=== PATIENT | female | born 1995 | race African-American/Black ===

== ENCOUNTER 2021-04-13 16:24 | Emergency (ER) | payer OTHER, MEDICAID, SELFPAY ==
[2021-04-13 16:39] VITALS: BP 146/89; PULSE 94; RESP 16; TEMP 36.2; O2SAT 99
--- NOTE | 2021-04-13 16:58 | ED.FEMALEGU ---
HPI - Female Genitourinary General Chief complaint: Urogenital-Female Stated complaint: POS UTI Time Seen by Provider: 04/13/21 16:58 Source: patient, RN notes reviewed and old records reviewed Mode of arrival: ambulatory Limitations: no limitations History of Present Illness HPI Narrative: 25 [facility] complaints of suprapubic pressure, urine frequency and pain with urination since Saturday. Patient states that in December she had a blood infection that started with a UTI that went into sepsis and was treated at [facility]. Patient reports that she has had no fevers, chills or sweats, denies any nausea or vomiting or any diarrhea, denies any vaginal discharge or any vaginal or perineal itching.Patient reports no concern for possible STD exposure. MD elicited complaint: dysuria and UTI Pertinent past history: recurrent UTIs Onset (ago): day(s) (day 3 of symptoms) Location of symptoms: suprapubic Related Data Home Medications Medication Instructions Recorded Confirmed empagliflozin [Jardiance] 10 mg PO DAILY 04/13/21 04/13/21 glimepiride 2 mg PO DAILY 04/13/21 04/13/21 lorazepam 1 mg PO PRN PRN 04/13/21 04/13/21 sertraline 50 mg PO DAILY 04/13/21 04/13/21 Allergies Allergy/AdvReac Type Severity Reaction Status Date / Time No Known Allergies Allergy Verified 04/13/21 16:39 Review of Systems Review of Systems: CONSTITUTIONAL: Denies fever, chills, or sweats. EYES: Denies visual changes, redness, or discharge. ENT: Denies rhinorrhea, congestion, sore throat, or otalgia. CARDIOVASCULAR: Denies chest pain, palpitations, or edema. RESPIRATORY: Denies cough or dyspnea. GASTROINTESTINAL:Positive for suprapubic abdominal pain,no nausea, vomiting, or diarrhea. GENITOURINARY:Positive for dysuria or hematuria. SKIN: Denies rash or itching. MUSCULOSKELETAL: Denies back pain, joint pain, or myalgia. NEUROLOGIC: Denies headache, numbness, or weakness. PSYCHIATRIC: Positive for history of anxiety or depression. All systems reviewed & are unremarkable except as noted in HPI and below PMFSH Past Medical History Medical History Anxiety and depression Diabetes type 2, controlled Hydradenitis Hypertension UTI (urinary tract infection) Surgical History Surgical History History of tonsillectomy and adenoidectomy Family History Family History Grandparent Kidney disease Cancer Hypertension Mother Kidney disease Heart disease Sibling Diabetes mellitus Social History Social History (Updated 04/15/21 @ 20:14 by Julee Latham NP) Smoking status: Never smoker Alcohol intake: never Substance use: never Living arrangements: with family Gender identity (if verbalized by the patient): Female Comments At time of signature, agree with nursing past medical, surgical, social and family history. There is no relevant family history pertinent to the presenting complaint Exam Narrative: GENERAL: Well-appearing, well-nourished, and in no acute distress. HEAD: Normocephalic, atraumatic. EYES: PERRLA and EOMI. ENT: Nares clear, no rhinorrhea or epistaxis. Mucous membranes moist. NECK: Supple.no lymphadenopathy CHEST: Clear to auscultation. No respiratory distress.SAO2 99% on room air HEART: Regular rate and rhythm. No murmur heard. Normal peripheral pulses. ABDOMEN: Soft,tender to suprapubic area, nondistended, normal active bowel sounds.No CVA tenderness on examination. EXTREMITIES: Normal range of motion. No edema. SKIN: Warm, dry, no rash. NEURO: No focal deficits. Alert and oriented x3. Course Vital Signs Vital signs: Vital Signs Temperature 36.2 C L 04/13/21 16:39 Pulse Rate 94 04/13/21 16:39 Respiratory Rate 16 04/13/21 16:39 Blood Pressure 146/89 H 04/13/21 16:39 Pulse Oximetry 9
== END 2021-04-13 17:20 | disposition home or self-care (01) ==
PROVIDERS: Emergency Provider Registered Nurse
DX: N39.0 Urinary tract infection, site not specified (principal); E11.9 Type 2 diabetes mellitus without complications; I10 Essential (primary) hypertension; F41.9 Anxiety disorder, unspecified; F32.9 Major depressive disorder, single episode, unspecified
CPT/HCPCS: 81003; 87077; 87086; 87088; 87186; 99213; G0463

== ENCOUNTER 2021-04-29 09:58 | Emergency (ER) | payer OTHER, MEDICAID, SELFPAY ==
[2021-04-29 10:12] VITALS: BP 148/74; PULSE 97; RESP 18; TEMP 36.8; O2SAT 100
[2021-04-29 10:59] LABS: Add Urine Microscopic? YES; Appearance Urine Clear (Clear); Bilirubin Urine Negative (Negative); Blood Urine Negative (Negative); Color Urine Yellow (Yellow); Glucose Urine UA 3+ mg/dL (Negative); Ketones Urine Negative (Negative); Leukocyte Esterase Ur 1+ LEU/UL (Negative); Nitrate Urine Negative (Negative); Protein Urine Negative (Negative); RBC Urine 0-2 /hpf (0-2); Specific Grav Ur 1.022 (1.001-1.035); Squamous Epithelial Cell Urine Occasional /hpf (Few); Urobilinogen Urine Negative mg/dL (<2.0)
--- NOTE | 2021-04-29 10:59 | ED.FEMALEGU ---
HPI - Female Genitourinary General Chief complaint: Urogenital-Female <Dalila New PA-C - Last Filed: 04/29/21 12:16> Stated complaint: yeast infection <Dalila New PA-C - Last Filed: 04/29/21 12:16> Time Seen by Provider: 04/29/21 10:12 <Dalila New PA-C - Last Filed: 04/29/21 12:16> Source: patient <ZAY Hewitt Last Filed: 04/29/21 12:16> Mode of arrival: ambulatory <ZAY Hewitt Last Filed: 04/29/21 12:16> Limitations: no limitations <ZAY Hewitt Last Filed: 04/29/21 12:16> History of Present Illness HPI Narrative: This is a 25-year-old female that presents to the emergency department for possible yeast infection. Reports she was recently on oral antibiotics for urinary tract infection. Reports over the last couple of days she has had itching and burning. Does also report some white discharge. She has history of diabetes mellitus. She would also like to be tested for STDs. Denies fever, vomiting, or flank pain. <Dalila New PA-C - Last Filed: 04/29/21 12:16> Related Data Home medications: Home Medications Medication Instructions Recorded Confirmed empagliflozin [Jardiance] 10 mg PO DAILY 04/13/21 04/13/21 glimepiride 2 mg PO DAILY 04/13/21 04/13/21 amlodipine 2.5 mg PO DAILY 04/29/21 losartan 25 mg PO DAILY 04/29/21 <ZAY Hewitt Last Filed: 04/29/21 12:16> Allergies/Adverse reactions: Allergies Allergy/AdvReac Type Severity Reaction Status Date / Time No Known Allergies Allergy Verified 04/29/21 10:18 <ZAY Hewitt Last Filed: 04/29/21 12:16> Review of Systems Review of Systems: CONSTITUTIONAL: Denies fever GASTROINTESTINAL: Denies abdominal pain, nausea, vomiting GENITOURINARY: Reports dysuria. Denies hematuria. SKIN: Reports itching. <Dalila New PA-C - Last Filed: 04/29/21 12:16> All systems reviewed & are unremarkable except as noted in HPI and below <Dalila New PA-C - Last Filed: 04/29/21 12:16> [facility] Past Medical History Medical History: Medical History Anxiety and depression Diabetes type 2, controlled Hydradenitis Hypertension UTI (urinary tract infection) <Dalila New PA-C - Last Filed: 04/29/21 12:16> Surgical History Surgical History: Surgical History History of tonsillectomy and adenoidectomy <ZAY Hewitt Last Filed: 04/29/21 12:16> Family History Family History: Family History Grandparent Kidney disease Cancer Hypertension Mother Kidney disease Heart disease Sibling Diabetes mellitus <ZAY Hewitt Last Filed: 04/29/21 12:16> Social History Social History: Social History (Updated 04/15/21 @ 20:14 by Julee Latham NP) Smoking status: Never smoker Alcohol intake: never Substance use: never Gender identity (if verbalized by the patient): Female <ZAY Hewitt Last Filed: 04/29/21 12:16> Exam Narrative: GENERAL: Well-appearing, obese, and in no acute distress. HEAD: Normocephalic, atraumatic. EYES: EOMI. CHEST: Airway patent HEART: Regular rate EXTREMITIES: Normal range of motion. No edema. SKIN: Warm, dry, no rash. NEURO: No focal deficits. Alert and oriented x3. PSYCH: Normal mood and affect PELVIC: Vulvovaginal redness with mild white discharge. Cervix appears normal. No CMT <ZAY Hewitt Last Filed: 04/29/21 12:16> Course Vital Signs Vital signs: Vital Signs Temperature 98.2 F 04/29/21 10:12 Pulse Rate 97 04/29/21 10:12 Respiratory Rate 18 04/29/21 10:12 Blood Pressure 148/74 H 04/29/21 10:12 Pulse Oximetry 100 04/29/21 10:12 Temperature 98.2 F 04/29/21 10:12 Pulse Rate 97 04/29/21 10:12 Respiratory Rate 18 04/29
[2021-04-29] MEDS: FLUCONAZOLE 150 MG TABLET PO (12:20)
== END 2021-04-29 12:26 | disposition home or self-care (01) ==
PROVIDERS: Physician Assistant; Emergency Provider General Practice
DX: B37.3 Candidiasis of vulva and vagina (principal); E11.9 Type 2 diabetes mellitus without complications; I10 Essential (primary) hypertension; Z79.899 Other long term (current) drug therapy; Z87.440 Personal history of urinary (tract) infections; Z79.84 Long term (current) use of oral hypoglycemic drugs
CPT/HCPCS: 81001; 81025; 87070; 87491; 87591; 87808; 99284; A9270

== ENCOUNTER 2021-08-08 18:38 | Emergency (ER) | payer OTHER, MEDICAID, SELFPAY ==
[2021-08-08 18:42] VITALS: BP 149/94; PULSE 110; RESP 12; TEMP 36.6; O2SAT 99
--- NOTE | 2021-08-08 18:45 | ED.GENADULT ---
HPI - General Adult General Chief complaint: Nausea/Vomiting/Diarrhea Stated complaint: NAUSEA/LIGHT HEADED/WEAKNESS Time Seen by Provider: 08/08/21 18:45 Source: patient, RN notes reviewed and old records reviewed Mode of arrival: ambulatory Limitations: no limitations History of Present Illness HPI narrative: 25-year-old female presents to the [facility] with complaints of generalized weakness since Thanksgiving, generalized nausea. Patient is requesting to have blood work done, explained to her that we cannot do blood work here patient states that she was unaware stood up and walked out. Patient states that she really needs blood work, had a similar feeling back in December 2020 and states I had a blood infection. Related Data Home Medications Medication Instructions Recorded Confirmed empagliflozin [Jardiance] 10 mg PO DAILY 04/13/21 04/13/21 glimepiride 2 mg PO DAILY 04/13/21 04/13/21 amlodipine 2.5 mg PO DAILY 04/29/21 losartan 25 mg PO DAILY 04/29/21 atorvastatin 08/08/21 hydroxyzine pamoate 08/08/21 lorazepam 08/08/21 sertraline mg 08/08/21 Allergies Allergy/AdvReac Type Severity Reaction Status Date / Time No Known Allergies Allergy Verified 04/29/21 10:18 Review of Systems Review of Systems: Unable to obtain, patient walked out Constitutional: Constitutional: Reports weakness PMFSH Past Medical History Medical History Anxiety and depression Diabetes type 2, controlled Hydradenitis Hypertension UTI (urinary tract infection) Surgical History Surgical History History of tonsillectomy and adenoidectomy Family History Family History Grandparent Kidney disease Cancer Hypertension Mother Kidney disease Heart disease Sibling Diabetes mellitus Social History Social History Smoking status: Never smoker Alcohol intake: never Substance use: never Gender identity (if verbalized by the patient): Female Comments At the time of my signature, I reviewed and agree with the nursing past medical, surgical, social, and family history. There is no relevant family history pertinent to the patient complaint. Exam Const: General: no acute distress Nutritional Appearance: obese morbidly obese Orientation/consciousness: patient oriented x3 Resp: Effort & Inspection: normal respiratory effort and no use of accessory muscles Psych: Appearance: well kempt Course Vital Signs Vital signs: Vital Signs Temperature 97.9 F 08/08/21 18:42 Pulse Rate 110 H 08/08/21 18:42 Respiratory Rate 12 08/08/21 18:42 Blood Pressure 149/94 H 08/08/21 18:42 Pulse Oximetry 99 08/08/21 18:42 Temperature 97.9 F 08/08/21 18:42 Pulse Rate 110 H 08/08/21 18:42 Respiratory Rate 12 08/08/21 18:42 Blood Pressure 149/94 H 08/08/21 18:42 Pulse Oximetry 99 08/08/21 18:42 Reviewed Medical Decision Making Vital Signs Vital Signs: Vital Signs Temperature 97.9 F 08/08/21 18:42 Pulse Rate 110 H 08/08/21 18:42 Respiratory Rate 12 08/08/21 18:42 Blood Pressure 149/94 H 08/08/21 18:42 Pulse Oximetry 99 08/08/21 18:42 Temperature 97.9 F 08/08/21 18:42 Pulse Rate 110 H 08/08/21 18:42 Respiratory Rate 12 08/08/21 18:42 Blood Pressure 149/94 H 08/08/21 18:42 Pulse Oximetry 99 08/08/21 18:42 Critical Care Time Critical Care Time Critical Care Time: No Discharge Plan Discharge Clinical Impression: Nausea Patient Disposition: Elopement After Seen by Prov Condition: Stable Prescriptions: No Action glimepiride 2 mg Tablet 2 mg PO DAILY RF: 0 Jardiance 10 mg Tablet 10 mg PO DAILY RF: 0 atorvastatin 10 mg tablet RF: 0 lorazepam 1 mg tablet RF: 0 sertraline 50 mg tablet RF: 0 hydroxyzine pamo
--- NOTE | 2021-08-08 18:49 | PC.NURSE ---
Patient left after seen by provider. Stated she wants blood work to see if she is septic. Was septic in December and felt just like this.
== END 2021-08-08 18:52 | disposition left against medical advice (07) ==
PROVIDERS: Emergency Provider Nurse Practitioner
DX: R11.0 Nausea (principal); E11.9 Type 2 diabetes mellitus without complications; I10 Essential (primary) hypertension
CPT/HCPCS: 99211; G0463

== ENCOUNTER 2021-10-25 09:28 | Emergency (ER) | payer OTHER, MEDICAID, SELFPAY ==
[2021-10-25 09:32] VITALS: BP 150/99; PULSE 102; RESP 18; TEMP 36.2; O2SAT 100
--- NOTE | 2021-10-25 11:53 | ED.WOUNDLAC ---
HPI - Wound/Laceration General Chief Complaint: Wound/Laceration Stated Complaint: boil to R thigh Time Seen by Provider: 10/25/21 11:06 Source: patient Mode of arrival: ambulatory Limitations: no limitations History of Present Illness HPI narrative: This is a 26 year old female that presents to the ER for abscess noted over the last 2 days. Reports history of hidradenitis suppurativa. She has noted redness and swelling of the right thigh over the last 2 days. Denies fever or drainage from the area. Related Data Home Medications Medication Instructions Recorded Confirmed empagliflozin [Jardiance] 10 mg PO DAILY 04/13/21 04/13/21 glimepiride 2 mg PO DAILY 04/13/21 04/13/21 amlodipine 2.5 mg PO DAILY 04/29/21 losartan 25 mg PO DAILY 04/29/21 atorvastatin 08/08/21 hydroxyzine pamoate 08/08/21 lorazepam 08/08/21 sertraline mg 08/08/21 Allergies Allergy/AdvReac Type Severity Reaction Status Date / Time No Known Allergies Allergy Verified 10/25/21 11:13 Review of Systems Review of Systems: CONSTITUTIONAL: Denies fever SKIN: Reports abscess All systems reviewed & are unremarkable except as noted in HPI and below PMFSH Past Medical History Medical History Anxiety and depression Diabetes type 2, controlled Hydradenitis Hypertension UTI (urinary tract infection) Surgical History Surgical History History of tonsillectomy and adenoidectomy Family History Family History Grandparent Kidney disease Cancer Hypertension Mother Kidney disease Heart disease Sibling Diabetes mellitus Social History Social History Smoking status: Never smoker Alcohol intake: never Substance use: never Gender identity (if verbalized by the patient): Female Exam Narrative: GENERAL: Well-appearing, well-nourished, and in no acute distress. HEAD: Normocephalic, atraumatic. EYES: EOMI. EXTREMITIES: Normal range of motion. No edema. Right inner thigh with 3cm area of edema with central fluctuance. Mild surrounding redness SKIN: Warm, dry, no rash. NEURO: No focal deficits. Alert and oriented x3. PSYCH: Normal mood and affect Course Vital Signs Vital signs: Vital Signs Temperature 97.1 F L 10/25/21 09:32 Pulse Rate 102 H 10/25/21 09:32 Respiratory Rate 18 10/25/21 09:32 Blood Pressure 150/99 H 10/25/21 09:32 Pulse Oximetry 100 10/25/21 09:32 Temperature 97.1 F L 10/25/21 09:32 Pulse Rate 102 H 10/25/21 09:32 Respiratory Rate 18 10/25/21 09:32 Blood Pressure 150/99 H 10/25/21 09:32 Pulse Oximetry 100 10/25/21 09:32 Procedures Abscess I/D lower extremity: Date of Incision: 10/25/21 Time of Incision: 13:00 Side (if applicable): right Local Anesthetic: lidocaine 1% and with epi Amount of anesthesia used (mL): 2 Technique: incised with #11 blade Irrigation: Yes Packing used?: iodoform I&D Results: Pus and Blood MDM - Wound/Laceration MDM Narrative Medical decision making narrative: Patient presents to the emergency department for an abscess of the right inner thigh. Mild surrounding redness of the area. Abscess successfully drained in the ED. Patient is afebrile and nontoxic-appearing. Will be started on oral antibiotics. She is to follow-up with her primary care doctor. She was given warnings to return to the ER Lab Data Attestation: I reviewed the patient's lab results. Labs: UCG Bedside Result Negative Reference Range: Negative Critical Care Time Critical Care Time Critical Care Time: No Discharge Plan Discharge Clinical Impression: Abscess Patient Disposition: Home, Self-Care Condition: Stable Instructions: Antibiotic Form
== END 2021-10-25 13:34 | disposition home or self-care (01) ==
PROVIDERS: Emergency Provider Emergency Medicine
DX: L02.415 Cutaneous abscess of right lower limb (principal); F41.9 Anxiety disorder, unspecified; F32.9 Major depressive disorder, single episode, unspecified; E11.9 Type 2 diabetes mellitus without complications; I10 Essential (primary) hypertension
CPT/HCPCS: 10061; 81025; 87070; 87147; 87181; 87186; 87205; 99283

== ENCOUNTER 2022-02-15 21:15 | Emergency (ER) | payer OTHER, MEDICAID, SELFPAY ==
[2022-02-15 22:02] VITALS: BP 153/108; PULSE 102; RESP 16; TEMP 36.1; O2SAT 98
--- NOTE | 2022-02-15 22:04 | ECG_ITS ---
Measurements Intervals [place] Rate: 100 P: 32 DE: 162 QRS: 38 QRSD: 90 T: 17 QT: 341 QTc: 440 Interpretive Statements SINUS TACHYCARDIA ABNORMAL RHYTHM ECG NO PREVIOUS ECG AVAILABLE FOR COMPARISON Electronically Signed On 02-16-2022 14:04:54 CDT by Andre Washington M.D.
[2022-02-15 22:33] LABS: Appearance Urine Clear (Clear); Bilirubin Urine Negative (Negative); Blood Urine 1+ (Negative); Color Urine Yellow (Yellow); Glucose Urine UA 3+ mg/dL (Negative); Ketones Urine Trace mg/dL (Negative); Leukocyte Esterase Ur Negative LEU/UL (Negative); Nitrate Urine Negative (Negative); Protein Urine Negative (Negative); Specific Grav Ur 1.025 (1.001-1.035); Urobilinogen Urine 0.2 mg/dL (<2.0); pH Urine 5.5 (5.0-9.0)
[2022-02-15 22:38] LABS: Mucus Urine Rare /lpf; RBC Urine 0-2 /hpf (0-2); Squamous Epithelial Cell Urine Few /hpf (Few); WBC Urine 0-3 /hpf
[2022-02-15 22:40] LABS: Add Urine Microscopic? YES
[2022-02-15 22:58] LABS: Basophils Absolute Auto 0.1 K/mm3 (0.0-0.1); Basophils Percent Auto 0.5 % (0.2-1.2); Eosinophils Absolute Auto 0.3 K/mm3 (0-0.3); Eosinophils Percent Auto 2.1 % (0-4.4); Hematocrit 44.1 % (37.0-47.0); Hemoglobin 14.4 g/dL (12.0-15.0); Immature Granulocyte Absolute 0.08 K/mm3 (0.00-0.031); Immature Granulocyte Percent A 0.7 % (0-0.5); Lymphocytes Absolute Auto 3.33 K/mm3 (0.9-3.2); Lymphocytes Percent Auto 28.4 % (18.3-44.2); Mean Corpuscular HGB Conc 32.7 g/dl (32-36); Mean Corpuscular Hemoglobin 28.5 pg (26-34); Mean Corpuscular Volume 87.3 fl (80-100); Mean Platelet Volume 10.4 fl (7.4-10.4); Monocytes Absolute Auto 0.9 K/mm3 (0.1-0.6); Monocytes Percent Auto 7.4 % (2.6-8.5); Neutrophils Absolute Auto 7.2 K/mm3 (1.3-6.7); Neutrophils Percent Auto 60.9 % (45.5-73.1); Platelet Count Result 303 k/mm3 (150-375); Red Blood Count 5.05 M/mm3 (4.2-5.4); Red Cell Distribution Width 12.8 % (11.5-14.5); White Blood Count 11.7 K/mm3 (4.5-10.0)
[2022-02-15 23:11] LABS: Alanine Aminotransferase 56 U/L (6-35); Albumin Level 4.1 g/dL (3.5-5.1); Alkaline Phosphatase 176 U/L (38-126); Anion Gap 8 mmol/L (8-16); Aspartate Amino Transferase 63 U/L (14-36); Bilirubin,Total 0.3 mg/dL (0.2-1.3); Blood Urea Nitrogen 11 mg/dL (7-17); Calcium 9.4 mg/dL (8.4-10.2); Carbon Dioxide 28 mmol/L (22-30); Chloride 100 mmol/L (98-107); Estimated CRCL calculation 155 ml/min; Estimated Glomerular Filt Rate > 60; Glucose 337 mg/dL (65-110); Lipase 48 U/L (23-300); Potassium 4.1 mmol/L (3.4-5.0); Sodium 136 mmol/L (137-145)
--- NOTE | 2022-02-15 23:35 | ED.ABDPAIN ---
HPI - Abdominal Pain General Chief Complaint: Abdominal Pain <ZAY Hewitt Last Filed: 02/16/22 00:53> Stated Complaint: uti that is getting worse <ZAY Hewitt Last Filed: 02/16/22 00:53> Time Seen by Provider: 02/15/22 23:22 <ZAY Hewitt Last Filed: 02/16/22 00:53> Source: patient <ZAY Hewitt Last Filed: 02/16/22 00:53> Mode of arrival: ambulatory <ZAY Hewitt Last Filed: 02/16/22 00:53> Limitations: no limitations <ZAY Hewitt Last Filed: 02/16/22 00:53> History of Present Illness HPI narrative: This is a 26-year-old female that presents to the emergency department for vulval vaginal discomfort. Reports she was recently diagnosed with a UTI and is finishing a course of Macrobid. Her hematuria has resolved. She has had some ongoing dysuria. Reports some nausea and indigestion. Earlier she was feeling anxious and started to develop some chest pain. She was concerned that her antibiotics were not working which prompted her to be seen. <Dalila New PA-C - Last Filed: 02/16/22 00:53> Related Data Home Medications: Home Medications Medication Instructions Recorded Confirmed empagliflozin 10 mg tablet 10 mg PO DAILY 04/13/21 04/13/21 (Jardiance) glimepiride 2 mg tablet 2 mg PO DAILY 04/13/21 04/13/21 amlodipine 2.5 mg tablet 2.5 mg PO DAILY 04/29/21 losartan 25 mg tablet 25 mg PO DAILY 04/29/21 atorvastatin 10 mg tablet 08/08/21 hydroxyzine pamoate 25 mg capsule 08/08/21 lorazepam 1 mg tablet 08/08/21 sertraline 50 mg tablet mg 08/08/21 <ZAY Hewitt Last Filed: 02/16/22 00:53> Allergies/Adverse Reactions: Allergies Allergy/AdvReac Type Severity Reaction Status Date / Time No Known Allergies Allergy Verified 02/15/22 23:57 <Dalila New PA-C - Last Filed: 02/16/22 00:53> Review of Systems Review of Systems: CONSTITUTIONAL: Denies fever GASTROINTESTINAL: Reports nausea. Denies abdominal pain, vomiting GENITOURINARY: Reports dysuria. Denies hematuria. <Dalila New PA-C - Last Filed: 02/16/22 00:53> All systems reviewed & are unremarkable except as noted in HPI and below <Dalila New PA-C - Last Filed: 02/16/22 00:53> PMFSH Past Medical History Medical History: Medical History Anxiety and depression Diabetes type 2, controlled Hydradenitis Hypertension UTI (urinary tract infection) <Dalila New PA-C - Last Filed: 02/16/22 00:53> Surgical History Surgical History: Surgical History History of tonsillectomy and adenoidectomy <Dalila New PA-C - Last Filed: 02/16/22 00:53> Family History Family History: Family History Grandparent Kidney disease Cancer Hypertension Mother Kidney disease Heart disease Sibling Diabetes mellitus <ZAY Hewitt Last Filed: 02/16/22 00:53> Social History Social History: Social History Smoking status: Never smoker Alcohol intake: never Substance use: never Gender identity (if verbalized by the patient): Female <ZAY Hewitt Last Filed: 02/16/22 00:53> Exam Narrative: GENERAL: Well-appearing, well-nourished, and in no acute distress. HEAD: Normocephalic, atraumatic. EYES: EOMI. CHEST: Clear to auscultation. No respiratory distress. No wheezes rales or rhonchi HEART: Regular rate and rhythm. No murmur heard. Normal peripheral pulses. ABDOMEN: Soft, nontender, nondistended, normal active bowel sounds. No CVA tenderness EXTREMITIES: Normal range of motion. No edema. SKIN: Warm, dry, no rash. NEURO: No focal deficits. Alert and oriented x3. PSYCH: Normal mood and affect FEMALE GENITAL: Mild redness and white discharge noted in the vulvova
[2022-02-15] MEDS: ONDANSETRON INJ 4 MG/2 ML VIAL IV PUSH (23:58)
[2022-02-15] MEDS: FLUCONAZOLE 150 MG TABLET PO (23:58)
[2022-02-15] MEDS: FAMOTIDINE 20 MG/2 ML VIAL IV PUSH (23:58)
[2022-02-16 00:05] VITALS: PULSE 98; RESP 16; O2SAT 97
[2022-02-16 00:39] LABS: Troponin I < 0.012 ng/mL (0.000-0.034)
[2022-02-16 01:07] VITALS: BP 153/84; PULSE 93; RESP 16; O2SAT 99
== END 2022-02-16 01:08 | disposition home or self-care (01) ==
PROVIDERS: Physician Assistant; Emergency Provider Emergency Medicine
DX: B37.3 Candidiasis of vulva and vagina (principal); E11.9 Type 2 diabetes mellitus without complications; I10 Essential (primary) hypertension; F41.9 Anxiety disorder, unspecified; F32.9 Major depressive disorder, single episode, unspecified
CPT/HCPCS: 36415; 80053; 81001; 81025; 83690; 84484; 85025; 93005; 96365; 96375; 99284; A9270; J0131; J2405

== ENCOUNTER 2022-05-07 14:42 | Emergency (ER) | payer OTHER, MEDICAID, SELFPAY ==
[2022-05-07 15:00] VITALS: BP 148/92; PULSE 110; RESP 20; TEMP 36.6; O2SAT 99
--- NOTE | 2022-05-07 17:26 | ED.WOUNDLAC ---
HPI - Wound/Laceration General Chief Complaint: Wound/Laceration Stated Complaint: abscess above pubic bone Time Seen by Provider: 05/07/22 17:07 Source: patient Mode of arrival: ambulatory Limitations: no limitations History of Present Illness HPI narrative: This is a 26-year-old female that presents to the emergency department for lower abdominal abscess present since yesterday. Reports history of frequent abscesses. Today she was also feeling generally unwell. She does report history of diabetes mellitus. She has not been checking her blood sugar. She has been taking her metformin as prescribed. Denies fevers or vomiting. Related Data Home Medications Medication Instructions Recorded Confirmed empagliflozin 10 mg tablet 10 mg PO DAILY 04/13/21 04/13/21 (Jardiance) glimepiride 2 mg tablet 2 mg PO DAILY 04/13/21 04/13/21 amlodipine 2.5 mg tablet 2.5 mg PO DAILY 04/29/21 losartan 25 mg tablet 25 mg PO DAILY 04/29/21 atorvastatin 10 mg tablet 08/08/21 hydroxyzine pamoate 25 mg capsule 08/08/21 lorazepam 1 mg tablet 08/08/21 sertraline 50 mg tablet mg 08/08/21 Allergies Allergy/AdvReac Type Severity Reaction Status Date / Time No Known Allergies Allergy Verified 05/07/22 18:16 Review of Systems Review of Systems: CONSTITUTIONAL: Denies fever GASTROINTESTINAL: Denies abdominal pain, nausea, vomiting All systems reviewed & are unremarkable except as noted in HPI and below PMFSH Past Medical History Medical History Anxiety and depression Diabetes type 2, controlled Hydradenitis Hypertension UTI (urinary tract infection) Surgical History Surgical History History of tonsillectomy and adenoidectomy Family History Family History Grandparent Kidney disease Cancer Hypertension Mother Kidney disease Heart disease Sibling Diabetes mellitus Social History Social History Smoking status: Never smoker Alcohol intake: never Substance use: never Gender identity (if verbalized by the patient): Female Exam Narrative: GENERAL: Well-appearing, well-nourished, and in no acute distress. HEAD: Normocephalic, atraumatic. EYES: EOMI. CHEST: No respiratory distress. HEART: Regular rate ABDOMEN: Soft, nontender, nondistended, normal active bowel sounds. Small (3cm) area of edema with central fluctuance to the left lower abdomen EXTREMITIES: Normal range of motion. No edema. SKIN: Warm, dry, no rash. NEURO: No focal deficits. Alert and oriented x3. PSYCH: Normal mood and affect Course Vital Signs Vital signs: Vital Signs Temperature 97.8 F 05/07/22 15:00 Pulse Rate 110 H 05/07/22 15:00 Respiratory Rate 20 05/07/22 15:00 Blood Pressure 148/92 H 05/07/22 15:00 Pulse Oximetry 99 05/07/22 15:00 Oxygen Delivery Room Air 05/07/22 15:00 Temperature 97.8 F 05/07/22 15:00 Pulse Rate 110 H 05/07/22 15:00 Respiratory Rate 20 05/07/22 15:00 Blood Pressure 148/92 H 05/07/22 15:00 Pulse Oximetry 99 05/07/22 15:00 Oxygen Delivery Room Air 05/07/22 15:00 Procedures Abscess I/D abdomen: Date of Incision: 05/07/22 Time of Incision: 18:58 Local Anesthetic: lidocaine 1% and with epi Amount of anesthesia used (mL): 3 Technique: incised with #11 blade Irrigation: Yes Packing used?: iodoform I&D Results: Pus and Blood MDM - Wound/Laceration MDM Narrative Medical decision making narrative: Patient presents to the ER for an abscess present on the abdomen. Patient with history of frequent abscesses. She is afebrile and nontoxic-appearing. CBC with mild leukocytosis. Blood glucose is elevated in the 200s. No anion gap. Patient's bicarb is normal. Reports she has been taking her metformin as scheduled. [place]
[2022-05-07 18:16] LABS: Basophils Absolute Auto 0.1 K/mm3 (0.0-0.1); Basophils Percent Auto 0.4 % (0.2-1.2); Eosinophils Absolute Auto 0.2 K/mm3 (0-0.3); Eosinophils Percent Auto 1.5 % (0-4.4); Hematocrit 44.2 % (37.0-47.0); Hemoglobin 14.6 g/dL (12.0-15.0); Immature Granulocyte Absolute 0.05 K/mm3 (0.00-0.031); Immature Granulocyte Percent A 0.4 % (0-0.5); Lymphocytes Absolute Auto 3.13 K/mm3 (0.9-3.2); Lymphocytes Percent Auto 27.1 % (18.3-44.2); Mean Corpuscular Volume 87.7 fl (80-100); Monocytes Absolute Auto 0.9 K/mm3 (0.1-0.6); Monocytes Percent Auto 7.5 % (2.6-8.5); Neutrophils Absolute Auto 7.3 K/mm3 (1.3-6.7); Neutrophils Percent Auto 63.1 % (45.5-73.1); Platelet Count Result 331 k/mm3 (150-375); Red Blood Count 5.04 M/mm3 (4.2-5.4); Red Cell Distribution Width 12.7 % (11.5-14.5); White Blood Count 11.5 K/mm3 (4.5-10.0)
[2022-05-07 18:24] LABS: Alanine Aminotransferase 42 U/L (6-35); Albumin Level 4.5 g/dL (3.5-5.1); Alkaline Phosphatase 164 U/L (38-126); Anion Gap 5 mmol/L (8-16); Aspartate Amino Transferase 47 U/L (14-36); Bilirubin,Total 0.4 mg/dL (0.2-1.3); Blood Urea Nitrogen 7 mg/dL (7-17); Calcium 9.2 mg/dL (8.4-10.2); Carbon Dioxide 27 mmol/L (22-30); Chloride 99 mmol/L (98-107); Estimated CRCL calculation 161 ml/min; Estimated Glomerular Filt Rate > 60; Glucose 258 mg/dL (65-110); Potassium 3.8 mmol/L (3.4-5.0); Sodium 131 mmol/L (137-145)
== END 2022-05-07 19:11 | disposition home or self-care (01) ==
PROVIDERS: Physician Assistant; Emergency Provider Emergency Medicine; PCP Family Medicine
DX: L02.211 Cutaneous abscess of abdominal wall (principal); F41.9 Anxiety disorder, unspecified; F32.9 Major depressive disorder, single episode, unspecified; I10 Essential (primary) hypertension; Z87.440 Personal history of urinary (tract) infections
CPT/HCPCS: 10061; 36415; 80053; 85025; 87070; 87077; 87186; 87205; 99283

== ENCOUNTER 2022-05-11 10:37 | Outpatient (CLI) | payer OTHER, MEDICAID, SELFPAY ==
[2022-05-11 19:15] LABS: Cholesterol 187 mg/dL (0-200); HDL Direct 28 mg/dL; Triglycerides 177 mg/dL (<150)
[2022-05-11 19:26] LABS: Hemoglobin A1C 11.6 % (<5.7)
[2022-05-11 19:40] LABS: LDL Cholesterol Direct 128 mg/dL
== END 2022-05-11 10:38 | disposition home or self-care (01) ==
LOC: ANHGOSHLAB 10:39
PROVIDERS: PCP Family Medicine; Visit Provider Family Medicine
DX: E11.9 Type 2 diabetes mellitus without complications (principal); R74.8 Abnormal levels of other serum enzymes; Z79.899 Other long term (current) drug therapy
CPT/HCPCS: 36415; 80061; 83036

== ENCOUNTER 2022-05-31 07:54 | Outpatient (CLI) | payer OTHER, MEDICAID, SELFPAY ==
--- NOTE | ~2022-05-31 | US_ITS ---
US right upper quadrant DATE: 05/31/2022 08:43 INDICATION: Abnormal liver enzymes TECHNIQUE: Real-time imaging of liver, pancreas, gallbladder, COMPARISON: 10/07/2017 CT abdomen pelvis FINDINGS: No hepatic or pancreatic space occupying mass lesion is detected. Normal hepatopedal renuka l venous flow direction. No gallstones or gallbladder wall thickening or abnormal pericholecystic fl uid collection. IMPRESSION: No significant abnormality Reviewed, dictated and finalized at [facility]. Reviewed, dictated and finalized at [facility]. IMPRESSION: No significant abnormality
== END 2022-05-31 07:55 | disposition home or self-care (01) ==
PROVIDERS: PCP Family Medicine; Visit Provider Family Medicine
DX: R74.8 Abnormal levels of other serum enzymes (principal)
CPT/HCPCS: 76705

== ENCOUNTER 2022-10-03 08:15 | Outpatient (CLI) | payer OTHER, MEDICAID, SELFPAY ==
[2022-10-03 09:37] LABS: Kit Draw Collected
== END 2022-10-03 08:16 | disposition home or self-care (01) ==
LOC: ANHGOSHLAB 08:16
PROVIDERS: PCP Family Medicine; Visit Provider Nurse Practitioner
DX: Z32.01 Encounter for pregnancy test, result positive (principal)
CPT/HCPCS: 36415

== ENCOUNTER 2022-10-05 08:28 | Outpatient (CLI) | payer OTHER, MEDICAID, SELFPAY | END 2022-10-05 08:29 | disposition home or self-care (01) | LOC: ANHGOSHLAB 08:30 | PROVIDERS: PCP Family Medicine; Visit Provider Nurse Practitioner | DX: Z32.01 Encounter for pregnancy test, result positive (principal) | CPT/HCPCS: 36415; 84702 ==

== ENCOUNTER 2022-10-14 17:57 | Emergency (ER) | payer OTHER, MEDICAID, SELFPAY ==
[2022-10-14] VITALS (7 sets, daily range): BP systolic 146–183; BP diastolic 82–111; PULSE 98–113; RESP 16–23; TEMP 36.9; O2SAT 97–100
--- NOTE | ~2022-10-14 | US_ITS ---
Pelvic ultrasound. Clinical History: First trimester , vaginal bleeding, pelvic pain Technique: Realtime transabdominal and transvaginal scanning of the pelvis was performed. Color flow Doppler and Doppler spectral analysis were performed. Findings: The uterus is anteverted. The endometrial stripe has a thickness of 17 mm. No intrauterine gestational sac is identified. Neither ovary seen. No adnexal mass seen. There is no evidence of free fluid in the cul de sac. Impression: Positive test without intrauterine gestation. Somewhat heterogeneous, prominent endometrial stripe suggests spontaneous . Early normal or nonvisualized ectopic anni ot be completely excluded based on this examination in isolation. Correlate clinically. Continued fol low up with serial beta hCG, and repeat ultrasound as warranted, is advised. Reviewed, dictated and finalized at location [facility]. [facility] CUTTER Impression: Positive test without intrauterine gestation. Somewhat heterogeneous, prominent endometrial stripe suggests spontaneous . Early normal pregn pelon or nonvisualized ectopic cannot be completely excluded based on this examination in isolation. Correlate clinically. Continued follow up with s erial beta hCG, and repeat ultrasound as warranted, is advised.
--- NOTE | 2022-10-14 19:29 | ED.PREGNANCY ---
HPI - General Chief complaint: Vaginal Bleeding Stated complaint: 7 weeks , alot of bleeidng Time Seen by Provider: 10/14/22 19:28 Source: patient and old records reviewed Mode of arrival: ambulatory Limitations: no limitations History of Present Illness HPI Narrative: Patient is a 27 y/o female who presents to the ED with c/o vaginal bleeding. Patient is and currently approximately 7 weeks gestation. She developed some vaginal spotting yesterday with wiping. Today, she noticed persistent spotting. The bleeding seemed to become heavier and with clots, which prompted her presentation. She also reports having some lower abdominal cramping. Denies significant nausea, vomiting, urinary symptoms, fevers. Patient is scheduled to see Dr. Gonzalez tomorrow for her first appointment. She has not had an ultrasound yet. Patient has a history of diabetes and is currently on Januvia and Glimepiride. She also has a history of hypertension but is not currently on any medications for this. She states her pressures have been around 140s systolic recently. They plan to discuss safe medications tomorrow. Related Data Home Medications Medication Instructions Recorded Confirmed sertraline 50 mg tablet 75 mg PO DAILY 05/11/22 10/03/22 Allergies Allergy/AdvReac Type Severity Reaction Status Date / Time No Known Allergies Allergy Verified 10/03/22 07:40 Review of Systems Review of Systems: CONSTITUTIONAL: Denies fever, chills, or sweats. EYES: Denies visual changes. CARDIOVASCULAR: Denies chest pain. RESPIRATORY: Denies cough or dyspnea. GASTROINTESTINAL: See HPI. GENITOURINARY: See HPI. NEUROLOGIC: Denies headache, numbness, or weakness. All systems reviewed & are unremarkable except as noted in HPI and below PMFSH Past Medical History Medical History Anxiety and depression Diabetes type 2, controlled Hydradenitis Hypertension UTI (urinary tract infection) Surgical History Surgical History History of tonsillectomy and adenoidectomy Family History Family History Grandparent Cancer breast and small intestine Hypertension Diabetes mellitus Heart disease Mother Heart disease Diabetes mellitus Hypertension Depression Anxiety COPD (chronic obstructive pulmonary disease) Sibling Diabetes mellitus Social History Social History Social History: Caffeine-coffee/tea 1 cup daily Smoking status: Never smoker Alcohol intake: current Alcohol use details: wine/wine cooler once a month 1-2 glasses Substance use: never Substance use type: does not use Lack of Transportation: No Lack of Food: Never True Current Housing: I Have Housing Concerned About Future Housing: No Difficulty Paying Gas/Electric Bills: No Difficulty Paying for Meds: No Currently Unemployed: No Education: Master's Degree or Higher Difficulty w/ Childcare or Family Care: No Living arrangements: with family Occupation/Education: occupation Gender identity (if verbalized by the patient): Female Agree to blood products: Yes Exam Narrative: GENERAL: Well appearing, morbidly obese, non-toxic, in no acute distress. HEAD: Normocephalic, atraumatic. NECK: Supple. No adenopathy, no masses. Acanthosis nigricans. RESPIRATORY: Airway patent, respirations nonlabored. Clear to auscultation bilaterally, no rales, rhonchi, wheezing. CARDIOVASCULAR: Regular rate and rhythm without murmurs, rubs, or gallops. Peripheral pulses 2+ and equal bilaterally. ABDOMINAL: Soft, no significant tenderness to palpation, nondistended, no hepatosplenomegaly. Normoactive BS. PELVIC: Hidradenitis changes to inner thighs, otherwise normal external genitalia. Mild amount of d
[2022-10-14] MEDS: SODIUM CHLORIDE 0.9% IV 1,000 ML 999 ML IV CONT (19:57)
[2022-10-14 19:59] LABS: Basophils Absolute Auto 0.1 K/mm3 (0.0-0.1); Basophils Percent Auto 0.5 % (0.2-1.2); Eosinophils Absolute Auto 0.2 K/mm3 (0-0.3); Eosinophils Percent Auto 1.6 % (0-4.4); Hematocrit 42.4 % (37.0-47.0); Hemoglobin 14.3 g/dL (12.0-15.0); Immature Granulocyte Absolute 0.08 K/mm3 (0.00-0.031); Immature Granulocyte Percent A 0.8 % (0-0.5); Lymphocytes Absolute Auto 2.91 K/mm3 (0.9-3.2); Lymphocytes Percent Auto 27.3 % (18.3-44.2); Mean Corpuscular HGB Conc 33.7 g/dl (32-36); Mean Corpuscular Hemoglobin 29.2 pg (26-34); Mean Corpuscular Volume 86.7 fl (80-100); Mean Platelet Volume 9.7 fl (7.4-10.4); Monocytes Percent Auto 9.1 % (2.6-8.5); Neutrophils Absolute Auto 6.5 K/mm3 (1.3-6.7); Neutrophils Percent Auto 60.7 % (45.5-73.1); Platelet Count Result 320 k/mm3 (150-375); Red Blood Count 4.89 M/mm3 (4.2-5.4); Red Cell Distribution Width 12.6 % (11.5-14.5); White Blood Count 10.7 K/mm3 (4.5-10.0)
[2022-10-14 20:11] LABS: Chloride 104 mmol/L (98-107)
[2022-10-14 20:15] LABS: Alanine Aminotransferase 40 U/L (6-35); Albumin Level 3.8 g/dL (3.5-5.1); Alkaline Phosphatase 142 U/L (38-126); Anion Gap 8 mmol/L (8-16); Aspartate Amino Transferase 44 U/L (14-36); Bilirubin,Total 0.4 mg/dL (0.2-1.3); Blood Urea Nitrogen 8 mg/dL (7-17); Calcium 8.9 mg/dL (8.4-10.2); Carbon Dioxide 25 mmol/L (22-30); Estimated CRCL calculation 235 ml/min; Estimated Glomerular Filt Rate > 60; Glucose 231 mg/dL (65-110); Potassium 3.7 mmol/L (3.4-5.0); Sodium 137 mmol/L (137-145)
== END 2022-10-14 22:27 | disposition home or self-care (01) ==
PROVIDERS: Emergency Provider Physician Assistant; PCP Family Medicine
DX: O03.9 Complete or unspecified spontaneous abortion without complication (principal); I10 Essential (primary) hypertension; E11.9 Type 2 diabetes mellitus without complications; F41.9 Anxiety disorder, unspecified; F32.A Depression, unspecified; Z87.440 Personal history of urinary (tract) infections; Z79.84 Long term (current) use of oral hypoglycemic drugs
CPT/HCPCS: 36415; 76801; 76817; 80053; 84702; 85025; 85461; 86850; 86900; 86901; 96360; 96361; 99284; J7030

== ENCOUNTER 2022-10-17 14:08 | Emergency (ER) | payer OTHER, MEDICAID, SELFPAY ==
--- NOTE | ~2022-10-17 | US_ITS ---
EXAMINATION: US pelvic complete w TV DATE: 10/17/2022 17:49 INDICATION: Miscarriage. Assess for retained products of conception. TECHNIQUE: Multiple transabdominal and endovaginal sonographic images of the pelvis were obtained. COMPARISON: 10/14/2022 FINDINGS: The uterus measures 9.0 x 5.3 x 5.9 cm. The endometrial complex measures 7 mm in thickness at the fu ndus which increases to 1.6 cm at the lower uterine segment and endocervical canal where there is christopher tral heterogeneous echogenic material but without internal vascular flow on color Doppler. Previously the thickened heterogeneous material with central more cephalad at the uterine body. No evident intr auterine gestational sac. The right ovary measures 2.4 x 2.2 x 4.5 cm. The left ovary measures 2.7 x 2.2 x 2.0 cm. Vascular flow identified in both ovaries on color Doppler. There is no free fluid in th e pelvis. IMPRESSION: 1. Heterogeneous echogenic material without internal vascular flow on color Doppler now positioned mo re caudally at the lower uterine segment and endocervical canal suggesting descending either in progress, clot or avascular retained products of conception. Reviewed, dictated and finalized at location [facility]. [facility]ER IMPRESSION: 1. Heterogeneous echogenic material without internal vascular flow on color Dop pler now positioned more caudally at the lower uterine segment and endocervical canal suggesting descending either in progress, clot or avascular ret ained products of conception.
[2022-10-17 15:13] VITALS: BP 152/109; PULSE 95; RESP 14; TEMP 36.5; O2SAT 100
[2022-10-17 15:39] LABS: Appearance Urine Clear (Clear); Bilirubin Urine Negative (Negative); Blood Urine 3+ (Negative); Color Urine Yellow (Yellow); Glucose Urine UA 3+ mg/dL (Negative); Ketones Urine Trace mg/dL (Negative); Leukocyte Esterase Ur Negative LEU/UL (Negative); Nitrate Urine Negative (Negative); Protein Urine Trace mg/dL (Negative); Specific Grav Ur >= 1.030 (1.001-1.035); Urobilinogen Urine 0.2 mg/dL (<2.0); pH Urine 5.5 (5.0-9.0)
[2022-10-17 15:51] LABS: Bacteria Urine Trace /hpf; Mucus Urine Rare /lpf; RBC Urine >75 /hpf (0-2); Squamous Epithelial Cell Urine Rare /hpf (Few); WBC Urine 0-3 /hpf
[2022-10-17 15:52] LABS: Add Urine Microscopic? YES
--- NOTE | 2022-10-17 17:15 | ED.ABDPAIN ---
HPI - Abdominal Pain General Chief Complaint: Vaginal Bleeding Stated Complaint: preg abdominal pain Time Seen by Provider: 10/17/22 16:56 History of Present Illness HPI narrative: Patient is a 27-year-old G1, P0 female presenting with abdominal pain. Patient states that she was here several days ago with vaginal bleeding and abdominal pain. She was diagnosed with a miscarriage and was able to go home. States that she followed up with OB 2 days ago and a repeat ultrasound was obtained which continued to show no definitive intrauterine . Patient states that today her vaginal bleeding became heavier and is now consistently clots. States that she also had worsening pain in her left lower quadrant. She called her PCP who advised that she come in for evaluation. Patient states that she thinks she has been feeling at least 1 pad an hour for the last several hours. No nausea or vomiting, dysuria, chest pain, shortness of breath, syncope. Related Data Home Medications Medication Instructions Recorded Confirmed sertraline 50 mg tablet 75 mg PO DAILY 05/11/22 10/03/22 Allergies Allergy/AdvReac Type Severity Reaction Status Date / Time No Known Allergies Allergy Verified 10/03/22 07:40 Review of Systems Review of Systems: All systems reviewed & are unremarkable except as noted in HPI and below PMFSH Past Medical History Medical History Anxiety and depression Diabetes type 2, controlled Hydradenitis Hypertension UTI (urinary tract infection) Surgical History Surgical History History of tonsillectomy and adenoidectomy Family History Family History Grandparent Cancer breast and small intestine Hypertension Diabetes mellitus Heart disease Mother Heart disease Diabetes mellitus Hypertension Depression Anxiety COPD (chronic obstructive pulmonary disease) Sibling Diabetes mellitus Social History Social History Social History: Caffeine-coffee/tea 1 cup daily Smoking status: Never smoker Alcohol intake: current Alcohol use details: wine/wine cooler once a month 1-2 glasses Substance use: never Substance use type: does not use Lack of Transportation: No Lack of Food: Never True Current Housing: I Have Housing Concerned About Future Housing: No Difficulty Paying Gas/Electric Bills: No Difficulty Paying for Meds: No Currently Unemployed: No Education: Master's Degree or Higher Difficulty w/ Childcare or Family Care: No Living arrangements: with family Occupation/Education: occupation Gender identity (if verbalized by the patient): Female Agree to blood products: Yes Exam Narrative: GENERAL: Well-appearing, well-nourished, and in no acute distress. Pleasant and cooperative HEAD: Normocephalic, atraumatic. EYES: PERRLA and EOMI. ENT: Nares clear, no rhinorrhea or epistaxis. Mucous membranes moist. NECK: Supple. CHEST: Clear to auscultation. No respiratory distress. HEART: Regular rate and rhythm. No murmur heard. Normal peripheral pulses. ABDOMEN: Soft, tender in left lower quadrant and suprapubic region EXTREMITIES: Normal range of motion. No edema. SKIN: Warm, dry, no rash. NEURO: No focal deficits. Alert and oriented x3. PSYCH: Normal mood and affect. Course Vital Signs Vital signs: Vital Signs Temperature 97.7 F 10/17/22 15:13 Pulse Rate 95 10/17/22 15:13 Respiratory Rate 14 10/17/22 15:13 Blood Pressure 152/109 H 10/17/22 15:13 Pulse Oximetry 100 10/17/22 15:13 Oxygen Delivery Room Air 10/17/22 15:13 Temperature 97.7 F 10/17/22 15:13 Pulse Rate 87 10/17/22 20:17 Respiratory Rate 17 10/17/22 20:17 Blood Pressure 129/77 10/17/22 20:17 Pulse Oximetry 97 10/17/22 20:17 Ox
--- NOTE | 2022-10-17 17:31 | PC.NURSE ---
Patient off unit to US>
[2022-10-17] MEDS: KETOROLAC 30 MG/ML VIAL (*BKC) IV PUSH (17:58)
[2022-10-17 18:05] LABS: Basophils Absolute Auto 0.1 K/mm3 (0.0-0.1); Basophils Percent Auto 0.5 % (0.2-1.2); Eosinophils Absolute Auto 0.2 K/mm3 (0-0.3); Eosinophils Percent Auto 1.9 % (0-4.4); Hematocrit 42.4 % (37.0-47.0); Hemoglobin 14.3 g/dL (12.0-15.0); Immature Granulocyte Absolute 0.07 K/mm3 (0.00-0.031); Immature Granulocyte Percent A 0.7 % (0-0.5); Lymphocytes Absolute Auto 2.79 K/mm3 (0.9-3.2); Lymphocytes Percent Auto 26.3 % (18.3-44.2); Mean Corpuscular HGB Conc 33.7 g/dl (32-36); Mean Corpuscular Hemoglobin 29.4 pg (26-34); Mean Corpuscular Volume 87.2 fl (80-100); Mean Platelet Volume 9.7 fl (7.4-10.4); Monocytes Absolute Auto 0.9 K/mm3 (0.1-0.6); Neutrophils Absolute Auto 6.7 K/mm3 (1.3-6.7); Neutrophils Percent Auto 62.6 % (45.5-73.1); Platelet Count Result 334 k/mm3 (150-375); Red Blood Count 4.86 M/mm3 (4.2-5.4); Red Cell Distribution Width 12.4 % (11.5-14.5); White Blood Count 10.6 K/mm3 (4.5-10.0)
[2022-10-17 18:31] LABS: Beta HCG Quantitative 54.25 mIU/ML
--- NOTE | 2022-10-17 19:16 | PC.NURSE ---
Patient report given to JUAN PABLO Mckay. All questions answered and care of patient transferred.
[2022-10-17 19:18] VITALS: O2SAT 99
[2022-10-17 19:19] VITALS: BP 127/80; O2SAT 100
[2022-10-17 20:17] VITALS: BP 129/77; PULSE 87; RESP 17; O2SAT 97
== END 2022-10-17 20:18 | disposition home or self-care (01) ==
PROVIDERS: Emergency Medicine; Emergency Provider Emergency Medicine; PCP Family Medicine
DX: O03.9 Complete or unspecified spontaneous abortion without complication (principal); F41.9 Anxiety disorder, unspecified; F32.9 Major depressive disorder, single episode, unspecified; I10 Essential (primary) hypertension
CPT/HCPCS: 36415; 76830; 76856; 81001; 84702; 85025; 96374; 99284; J1885

== ENCOUNTER 2023-02-07 13:20 | Emergency (ER) | payer OTHER, MEDICAID, SELFPAY ==
[2023-02-07 13:23] VITALS: BP 150/106; PULSE 110; RESP 18; TEMP 36.6; O2SAT 99
--- NOTE | 2023-02-07 13:49 | ED.GENADULT ---
HPI - General Adult General Chief complaint: Skin/Abscess/Foreign Body Stated complaint: boil on abdomen Time Seen by Provider: 02/07/23 13:40 Source: patient and RN notes reviewed Mode of arrival: ambulatory Limitations: no limitations History of Present Illness HPI narrative: History of hidradenitis suppurativa, recurrent pain and possible abscess formation at the left lower abdomen few days ago. No fever, no chills, no nausea or vomiting. Been managed by flat sheet maker, last time was seen over 6 months ago, had some injection at that time Related Data Home Medications Medication Instructions Recorded Confirmed sertraline 50 mg tablet 75 mg PO DAILY 05/11/22 10/03/22 Allergies Allergy/AdvReac Type Severity Reaction Status Date / Time No Known Allergies Allergy Verified 02/07/23 13:20 Review of Systems Review of Systems: All systems reviewed & are unremarkable except as noted in HPI and below PMFSH Past Medical History Medical History Anxiety and depression Diabetes type 2, controlled Hydradenitis Hypertension UTI (urinary tract infection) Surgical History Surgical History History of tonsillectomy and adenoidectomy Family History Family History Grandparent Cancer breast and small intestine Hypertension Diabetes mellitus Heart disease Mother Heart disease Diabetes mellitus Hypertension Depression Anxiety COPD (chronic obstructive pulmonary disease) Sibling Diabetes mellitus Social History Social History Social History: Caffeine-coffee/tea 1 cup daily Smoking status: Never smoker Alcohol intake: current Alcohol use details: wine/wine cooler once a month 1-2 glasses Substance use: never Substance use type: does not use Lack of Transportation: No Lack of Food: Never True Current Housing: I Have Housing Concerned About Future Housing: No Difficulty Paying Gas/Electric Bills: No Difficulty Paying for Meds: No Currently Unemployed: No Education: Master's Degree or Higher Difficulty w/ Childcare or Family Care: No Living arrangements: with family Occupation/Education: occupation Gender identity (if verbalized by the patient): Female Agree to blood products: Yes Exam Narrative: General appearance: Well-developed, well-nourished Skin: Normal color Backspace Chest and respiratory: Airway patent, no respiratory distress, no accessory muscle use Heart: Regular rate/rhythm Abdomen: Soft, left lower abdomen showed chronic hyperpigmented skin, with a lot of scar tissue, abscess-like feeling, positive fluctuation, 5 x 5 cm, tender to touch, no erythema, no discharge Vascular: Normal peripheral pulses, normal capillary refill. Musculoskeletal: Normal range of motion, nontender back Neurologic: Alert and oriented ?3, CRACKER DOUGH MIXER is normal as tested, no gross motor deficit Course Reevaluation(s) Reevaluation #1: Patient feeling much better after incision and drainage, ready to go. Date: 02/07/23 Time: 16:02 Vital Signs Vital signs: Vital Signs Temperature 36.6 C 02/07/23 13:23 Pulse Rate 110 H 02/07/23 13:23 Respiratory Rate 18 02/07/23 13:23 Blood Pressure 150/106 H 02/07/23 13:23 Pulse Oximetry 99 02/07/23 13:23 Temperature 36.6 C 02/07/23 13:23 Pulse Rate 110 H 02/07/23 13:23 Respiratory Rate 18 02/07/23 13:23 Blood Pressure 150/106 H 02/07/23 13:23 Pulse Oximetry 99 02/07/23 13:23 Procedures Abscess I/D abdomen:
[2023-02-07] MEDS: LIDOCAINE HCL 1% LOCAL INJ 10 ML VIAL (16:00)
== END 2023-02-07 16:43 | disposition home or self-care (01) ==
PROVIDERS: Emergency Provider Emergency Medicine; PCP Family Medicine
DX: L02.211 Cutaneous abscess of abdominal wall (principal); E11.9 Type 2 diabetes mellitus without complications; I10 Essential (primary) hypertension; F41.9 Anxiety disorder, unspecified; F32.A Depression, unspecified; Z87.440 Personal history of urinary (tract) infections; Z79.84 Long term (current) use of oral hypoglycemic drugs
CPT/HCPCS: 10061; 87070; 87077; 87186; 87205; 99283

== ENCOUNTER 2024-03-18 01:16 | Emergency (ER) | payer OTHER, SELFPAY ==
[2024-03-18 01:25] VITALS: BP 155/104; PULSE 100; RESP 18; TEMP 36.1; O2SAT 100
[2024-03-18 01:35] VITALS: BP 155/101; PULSE 100; RESP 18; TEMP 36.1; O2SAT 100
--- NOTE | 2024-03-18 01:57 | ED.SKABFB ---
HPI - Skin/Abscess/Foreign Bdy General Chief complaint: Skin/Abscess/Foreign Body Stated complaint: boil on my chest Time Seen by Provider: 03/18/24 01:37 History of Present Illness HPI narrative: patient 1st noticed a very small bump to the center of her chest about a week ago, has unfortunately grown and become more tender. She does have a history of hidradenitis and DM and has had multiple abscesses in the past requiring drainage, she is not currently on any medications for this because she just moved here and does not have a veneer puller. No fevers or chills or systemic symptoms. Related Data Allergies Allergy/AdvReac Type Severity Reaction Status Date / Time No Known Allergies Allergy Verified 03/18/24 01:30 Review of Systems Review of Systems: All systems reviewed & are unremarkable except as noted in HPI and below PMFSH Past Medical History Medical History Anxiety and depression Diabetes type 2, controlled Hydradenitis Hypertension UTI (urinary tract infection) Surgical History Surgical History History of tonsillectomy and adenoidectomy Family History Family History Grandparent Cancer breast and small intestine Hypertension Diabetes mellitus Heart disease Mother Heart disease Diabetes mellitus Hypertension Depression Anxiety COPD (chronic obstructive pulmonary disease) Sibling Diabetes mellitus Social History Social History Social History: Caffeine-coffee/tea 1 cup daily Smoking status: Never smoker Alcohol intake: current Alcohol use details: wine/wine cooler once a month 1-2 glasses Substance use: never Substance use type: does not use Lack of Transportation: No Lack of Food: Never True Current Housing: I Have Housing Concerned About Future Housing: No Difficulty Paying Gas/Electric Bills: No Difficulty Paying for Meds: No Currently Unemployed: No Education: Master's Degree or Higher Difficulty w/ Childcare or Family Care: No Living arrangements: with family Occupation/Education: occupation Gender identity (if verbalized by the patient): Female Agree to blood products: Yes Exam Narrative: EXAMINATION OF ORGAN SYSTEMS/BODY AREAS: Constitutional: Vital signs per nursing GENERAL:[No acute distress, non-toxic appearing.] HEAD: Normal with no signs of head trauma. EYES: EOMI, conjunctiva normal ENT: Hearing grossly intact LUNGS: Nonlabored breathing. HEART: [Regular rate and rhythm] ABD: [Soft], [nontender to palpation] EXT: Normal range of motion SKIN: Fluctuant area 2x2cm to sternum NEURO: [Alert and oriented x 3. No gross focal sensory or strength deficits.] PSYCH: Normal affect Course Vital Signs Vital signs: Vital Signs Temperature 97.0 F L 03/18/24 01:25 Pulse Rate 100 03/18/24 01:25 Respiratory Rate 18 03/18/24 01:25 Blood Pressure 155/104 H 03/18/24 01:25 Pulse Oximetry 03/18/24 01:25 Oxygen Delivery Room Air 03/18/24 01:25 Temperature 97.0 F L 03/18/24 01:35 Pulse Rate 03/18/24 01:35 Respiratory Rate 18 03/18/24 01:35 Blood Pressure 155/101 H 03/18/24 01:35 Pulse Oximetry 03/18/24 01:35 Oxygen Delivery Room Air 03/18/24 01:25 Procedures Abscess I/D chest: Date of Incision: 03/18/24 Time of Incision: 02:10 Local Anesthetic: lidocaine 1% Amount of anesthesia used (mL): 1 Technique: incised with #11 blade and probed loculations Amount of fluid expressed (mL): 3 Packing used?: none I&D Results: Other (bloody drainage) MDM - Skin/Abscess/Foreign Bdy MDM Narrative Medical decision making narrative: patient presenting with history and exam consistent with abscess around sternum, I did p
[2024-03-18] MEDS: SULFAMETHOXAZOLE/TRIMETHOPRIM 800/160 MG DS TABLET 1 TAB PO (02:12)
== END 2024-03-18 02:25 | disposition home or self-care (01) ==
PROVIDERS: Emergency Provider Emergency Medicine; PCP Family Medicine
DX: L02.91 Cutaneous abscess, unspecified (principal); E11.9 Type 2 diabetes mellitus without complications; I10 Essential (primary) hypertension; J86.9 Pyothorax without fistula
CPT/HCPCS: 10060; 99283; A9270

== ENCOUNTER 2025-02-14 15:20 | Emergency (ER) | payer OTHER, SELFPAY ==
--- NOTE | ~2025-02-14 | US_ITS ---
EXAMINATION: US venous doppler [facility] DATE: 02/14/2025 16:33 INDICATION: injury, swelling, bruising . TECHNIQUE: Grayscale images without and with compression and Doppler images of the left lower extremi ty veins were obtained. COMPARISON: None FINDINGS: The left common femoral vein, profunda (deep) femoral vein, femoral vein, popliteal vein, peroneal v ein, posterior tibial veins, gastrocnemius vein, and greater saphenous vein are patent. The loculated mostly cystic, elongated structure in the left calf musculature measuring 6.1 x 0.9 x 6.0 cm. IMPRESSION: Patent left lower extremity veins. No evidence of deep venous thrombosis. Likely soft tissue/muscular hematoma in the mid left calf, correlate clinically. Recommend clinical/s onographic follow-up to ensure resolution. Reviewed, dictated and finalized at location K. IMPRESSION: Patent left lower extremity veins. No evidence of deep venous thrombosis. Likely soft tissue/muscular hematoma in the mid left calf, correlate clinically . Recommend clinical/sonographic follow-up to ensure resolution.
--- NOTE | ~2025-02-14 | CT_ITS ---
CTA OF left lower extremity EXAMINATION: CTA LE DATE: 02/14/2025 18:22 INDICATION: Large calf hematoma after knee hyperextension TECHNIQUE: Computed tomography angiography of the left lower extremity was performed with 150 mL Omni paque 350 intravenous contrast. Automated exposure control and iterative reconstruction technique wer e employed. The dose-length product was 266.27 mGy-cm. COMPARISON: Ultrasound left lower extremity venous Doppler, same date FINDINGS: Limitations: None Arteries: Normal enhancing bilateral lower extremity arteries. There is 2 vessel flow below the level of the ankles bilaterally. No significant plaque. Bones: Curvilinear ossific fragment along the proximal and medial aspect of the left medial femoral c ondyle at the origin of the MCL, presumably chronic given the lack of significant joint effusion. Tin y ossific fragment adjacent to the lateral corner of the left lateral tibial plateau, also presumably chronic. Degenerative changes in the bilateral knees. The included osseous structures are otherwise within normal limits. There are no erosive or destructive bony lesions. Soft Tissues: Fluid collection running along the undersurface of the medial head of the left gastrocn emius muscle, without active extravasation. Small volume joint fluid is present in both knees. The ma rocio stabilizing ligaments of the knees appear to be intact. IMPRESSION: Left medial calf hematoma underneath the medial head of the gastrocnemius, presumably associated with a partial gastrocnemius tear. No active extravasation. Presumed chronic small Stieda and Segond fracture fragments at the left knee. No obvious acute fractu re identified. If there is knee pain, or clinical suspicion of knee injury is high, recommend MRI of the knee. Reviewed, dictated and finalized at location K. IMPRESSION: Left medial calf hematoma underneath the medial head of the gastrocnemius, pres umably associated with a partial gastrocnemius tear. No active extravasation. Presumed chronic small Stieda and Segond fracture fragments at the left knee. N o obvious acute fracture identified. If there is knee pain, or clinical suspici on of knee injury is high, recommend MRI of the knee.
--- OUTSIDE RECORDS SUMMARY | 2025-02-14 15:23 | XMS_ITS | Encounter Summary ---
Author Organization [facility] Address [address] [place] [address] Phone Care Team Providers Care Space And Storage Clerk Name Role Phone Amy Rinaldi Primary Care Provide r Reason for Visit * Reason Comments Medication Refill Encounter Details Date Type Department Care Team (Late st Contact Info) Description 02/01/2021 Refill [facility] [address] [place] [address] Amy Rinaldi, PAC [address] [place] [address] Medication Refill Social History Tobacco Use Types Packs/Day Years Used Date Smoking Tobacco: Never Smokeless Tobacco: Never Alcohol Use Standard Drinks/Week Comments Never 0 (1 standard drink = 0.6 oz pur e alcohol) AUDIT-C Answer Date Recorded Q1: How often do you have a drink containing alc ohol? Never 09/12/2020 Average Number of Drinks Not on file 021 Frequency of Binge Drinking Not on file 12/2020 PHQ-2 Answer Date Recorded Total Score - Questions 1-9 0 12/09 Education Answer Date Recorded What is the highest level of school you have completed or the highest degree you have received? Master's degree (e.g., MA, MS, Brett, MEd, DECK BUILDER, [employer]) 09/12/2020 Sexually Active Control Partners Comments Yes None Male Comments No Sex and Gender Information Value Date Recorded Sex Assigned at Not on file Legal Sex Female 6:20 PM CDT Gender Identity Not on file Sexual Orientation Not on file COVID-19 Exposure Response Date Recorded In the last month, have you been in contact with someone who was confirmed or suspected to have Coronavirus / COVID-19? No / Unsure 02/01/2021 7:27 AM CDT documented as of this encounter Miscellaneous Notes * Telephone Encounter - Jaquelin Ashley RN - 02/01/2021 7:32 AM CDT Requested Prescriptions Pending Prescriptions Disp Refills ??? Jardiance 10 MG Tablet [Pharmacy Med Name: JARDIANCE 10 MG TABLET] 30 Tablet 0 Sig: TAKE 1 TABLET BY MOUTH EVERY DAY FOR 30 DAYS Last OV 01/10/2021 Next OV 02/10/2021 documented in this encounter Plan of Treatment Not on file documented as of this encounter Visit Diagnoses Diagnosis Type 2 diabetes mellitus with other specified complication, without long-term current use of insulin documented in this encounter Additional Health Concerns Assessment Noted Time PHQ-9 Depression Total Score: 0 12/28/19 21 12:01 PM CDT documented as of this encounter Care Teams Space And Storage Clerk Relationship Specialty Start Date End Date Amy Rinaldi, BEBE PCP - General Physician Endless Track Vehicle Supervisor 09/12/20 08/19/23 documented as of this encounter
--- OUTSIDE RECORDS SUMMARY | 2025-02-14 15:23 | XMS_ITS | Encounter Summary ---
Author Organization [facility] Address [address] [place] [address] Phone Care Team Providers Care Varnish Filterer Name Role Phone Amy Rinaldi Primary Care Provide r Reason for Visit * Reason Comments Medication Refill Encounter Details Date Type Department Care Team (Late st Contact Info) Description 03/27/2021 Refill [facility] [address] [place] [address] Amy Rinaldi, PAC [address] [place] [id number] Medication Refill Social History Tobacco Use Types [...] Master's degree (e.g., MA, MS, Brett, MEd, FOOD COOKING MACHINE OPERATOR, [employer]) 09/12/2020 Sexually Active Control Partners Comments Yes None Male Comments No Sex and Gender Information Value Date Recorded Sex Assigned at Not on file Legal Sex Female 6:20 PM CDT Gender Identity Not on file Sexual Orientation Not on file documented as of this encounter Plan of Treatment Not on file documented as of this encounter Visit Diagnoses Not on filedocumented in this encounter Additional Health Concerns Assessment Noted Time PHQ-9 Depression Total Score: 0 12/28/19 21 12:01 PM CDT documented as of this encounter Care Teams Varnish Filterer Relationship Specialty Start Date End Date Amy Rinaldi, BEBE PCP - General Physician Meat Boner 09/12/20 08/19/23 documented as of this encounter
--- OUTSIDE RECORDS SUMMARY | 2025-02-14 15:23 | XMS_ITS | Clinical Summary ---
Author Organization [facility] [address] Address [address] [place] [id number] Care Team Providers Care Application Support Technician Name Role Phone Unknown, Notinfile Primary Care Provider Unavail able Allergies No known active allergies Medications Mounjaro 15 mg/0.5 mL pen injector injection INJECT 15 MG (0.5 ML) SUBCUTANEOUSLY WEEKLY. 5 Active sertraline (ZOLOFT) 100 mg tablet Take 1 tablet (100 mg total) by mouth daily 5 Active sertraline (ZOLOFT) 50 mg tablet TAKE 1 TABLET BY MOUTH ONCE DAILY ALONG WITH 25 MG FOR A TOTAL OF 75 MG. 2 Active metFORMIN XR (GLUCOPHAGE XR) 500 mg 24 hr tablet Take 2 tablets (1,000 mg total) by mouth 2 (two) times a day 5 Active glimepiride (AMARYL) 1 mg tablet TAKE 1 TABLET BY MOUTH ONCE DAILY IN THE MORNING WITH BREAKFAST Active LORazepam (ATIVAN) 1 mg tablet Take 1 tablet (1 mg total) by mouth daily as needed 1 Active Active Problems No known active problems Encounters Date Type Department Care Team Description 02/11/2025 Results Follow-Up [facility] at [address] [id number] NP XR Ankle Left 3+ Vw, XR Tibia Fibula Left 2 Vw 02/10/2025 3:35 PM CDT Ancillary Procedure [facility] at [address] [id number] Injury of calf 02/10/2025 3:30 PM CDT Ancillary Procedure [facility] at [address] [phone] Injury of calf 02/10/2025 3:15 PM CDT Office Visit [facility] at [address] [phone] Jolynn Rose PA Injury of calf (Primary Dx) from Last 3 Months Social History Tobacco Use Types Packs/Day Years Used Date Smoking Tobacco: Never Assessed Comments Unknown Sex and Gender Information Value Date Recorded Sex Assigned at Not on file 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 Gender Identity Not on file Sexual Orientation Not on file Obstetrics History Last Filed Vital Signs Vital Sign Reading Time Taken Comments Blood Pressure 132/84 02/10/2025 2:54 PM CDT Pulse 84 02/10/2025 2:54 PM CDT Temperature 36.4 C (97.5 F) 02/10/2025 2:54 PM CDT Respiratory Rate 20 02/10/2025 2:54 PM CDT Oxygen Saturation 99% 02/10/2025 2:54 PM CDT Inhaled Oxygen Concentration - - Weight 142 kg (313 lb) 02/10/2025 2:54 PM CDT Height - - Body Mass Index - - Plan of Treatment Health Maintenance Due Date Last Done Comments Cervical Cancer Screening 1994 Depression Screening 1994 Hepatitis C Screening 1994 Regular Well Visit/Exam 18-64 2012 DTaP/Tdap/Td Vaccine (6 - Td or Tdap) 04/05/2019 04/05/2009, 03/13/1996, 06/19/1995, Additional history exists Covid-19 Vaccine ( season) 2024 10/06/2020, 09/08/2020 Influenza Vaccine (Season Ended) 2025 09/12/2020 Hepatitis B Screening Completed 06/19/1995 , 01/02/1995, 1994 Varicella Vaccines Completed 04/05/2009, 06/28/2000 HPV Vaccines Completed 10/25/2009, 06/10, 04/05/2009 Pneumococcal vaccine <65 Aged Out 01/10/2021 No longer eligible based on patient's age to complete this topic Procedures Procedure Name Priority Date/Time Associated Diagnosis Comments XR ANKLE LEFT 3 OR MORE VIEWS Schedule LISETTE, Read LISETTE (Appt Today, Awaiting Results) 02/10/2025 3:34 PM CDT Injury of calf XR TIBIA FIBULA LEFT 2 VIEWS Schedule LISETTE, Read LISETTE (Appt Today, Awaiting Results) 02/10/2025 3:34 PM CDT Injury of calf from Last 3 Months Results * XR Ankle Left 3+ Vw (02/10/2025 3:34 PM CDT) Anatomical Region Laterality Modality Lower Extremities, Ankle Left Digital Radiography 02/10/2025 8:14 PM CDT Narrative 02/10/2025 8:16 PM CDT EXAM DESCRIPTION: XR TIBIA FIBULA LEFT 2 VIEWS; XR ANKLE LEFT 3 OR MORE VIEWS REASON FOR STUDY: calf pain Pt complains of posterior calf and ankle pain after falling Saturday. No prior surgery to the lower leg/ankle. TECHNIQUE: 2 radiographic view(s) of the left tibia fibula and 3 radiographic views of the left ankle. COMPARISON: None available. FINDINGS: BONES/JOINTS: There is normal osseous alignment. No acute fracture or dislocation. Mild osteoarthritic changes of the knee with medial tibiofemoral compartment joint space narrowing and osteophyte formation. Ossific density seen adjacent to the medial femoral condyle may represent small intra-articular body or sequela of old proximal MCL injury. SOFT TISSUES: Within normal limits. IMPRESSION: No acute osseous abnormality. THIS IS AN ELECTRONICALLY VERIFIED FINAL REPORT 02/10/2025 8:16 PM - Electronically signed by Andre Hidalgo M.D. T: Report ID: [id number] Reading Location: [id number] Procedure Note Andre Hidalgo, DO - 02/10/2025 EXAM DESCRIPTION: XR TIBIA FIBULA LEFT 2 VIEWS; XR ANKLE LEFT 3 OR MOREVIEWS REASON FOR STUDY: calf pain Pt complains of posterior calf and ankle pain after falling Saturday. Noprior surgery to the lower leg/ankle. TECHNIQUE: 2 radiographic view(s) of the left tibia fibula and 3 radiographic views of the left ankle. COMPARISON: None available. FINDINGS: BONES/JOINTS: There is normal osseous alignment. No acutefracture or dislocation. Mild osteoarthritic changes of the knee with medial tibiofemoral compartment joint space narrowing and osteophyte formation. Ossific density seen adjacent to the medial femoral condyle may represent small intra-articular body or sequela of old proximal MCL injury. SOFT TISSUES: Within normal limits. IMPRESSION: No acute osseous abnormality. THIS IS AN ELECTRONICALLY VERIFIED FINAL REPORT 02/10/2025 8:16 PM - Electronically signed by Andre Hidalgo M.D. T: Report ID: [id number] Reading Location: [place] [id number] [facility] IMG XR PROCEDURES Final Result * XR Tibia Fibula Left 2 Vw (02/10/2025 3:34 PM CDT) Anatomical Region Laterality Modality Lower Extremities, Lower Leg Left Dig ital Radiography 02/10/2025 8:14 PM CDT Narrative 02/10/2025 8:16 PM CDT EXAM DESCRIPTION: XR TIBIA FIBULA LEFT 2 VIEWS; XR ANKLE LEFT 3 OR MORE VIEWS REASON FOR STUDY: calf pain Pt complains of posterior calf and ankle pain after falling Saturday. No prior surgery to the lower leg/ankle. TECHNIQUE: 2 radiographic view(s) of the left tibia fibula and 3 radiographic views of the left ankle. COMPARISON: None available. FINDINGS: BONES/JOINTS: There is normal osseous alignment. No acute fracture or dislocation. Mild osteoarthritic changes of the knee with medial tibiofemoral compartment joint space narrowing and osteophyte formation. Ossific density seen adjacent to the medial femoral condyle may represent small intra-articular body or sequela of old proximal MCL injury. SOFT TISSUES: Within normal limits. IMPRESSION: No acute osseous abnormality. THIS IS AN ELECTRONICALLY VERIFIED FINAL REPORT 02/10/2025 8:16 PM - Electronically signed by Andre Hidalgo M.D. T: Report ID: [id number] Reading Location: [id number] Procedure Note Andre Hidalgo, DO - 02/10/2025 EXAM DESCRIPTION: XR TIBIA FIBULA LEFT 2 VIEWS; XR ANKLE LEFT 3 OR MOREVIEWS REASON FOR STUDY: calf pain Pt complains of posterior calf and ankle pain after falling Saturday. Noprior surgery to the lower leg/ankle. TECHNIQUE: 2 radiographic view(s) of the left tibia fibula and 3 radiographic views of the left ankle. COMPARISON: None available. FINDINGS: BONES/JOINTS: There is normal osseous alignment. No acutefracture or dislocation. Mild osteoarthritic changes of the knee with medial tibiofemoral compartment joint space narrowing and osteophyte formation. Ossific density seen adjacent to the medial femoral condyle may represent small intra-articular body or sequela of old proximal MCL injury. SOFT TISSUES: Within normal limits. IMPRESSION: No acute osseous abnormality. THIS IS AN ELECTRONICALLY VERIFIED FINAL REPORT 02/10/2025 8:16 PM - Electronically signed by Andre Hidalgo M.D. T: Report ID: [id number] Reading Location: [id number] [facility] GUILLORY IMG XR PROCEDURES Final Result from Last 3 Months Insurance [facility] Care Teams Application Support Technician Relationship Specialty Start Date End Date Unknown, Notinfile PCP - General 02/10/25
--- OUTSIDE RECORDS SUMMARY | 2025-02-14 15:23 | XMS_ITS | Data Portability ---
Author Organization [facility] Address [address] [place] [address] Care Team Providers Care Business Development Agent Name Role Phone MASOOD HUANG Primary Care Provider Assessment Encounter Date Assessment Date Assessment LastModified by Organization Details LastModified Time 09/04/2022 09/04/2022 Annual gynecological exam performed. Patient will come back in a year unless there are new symptoms. [email or web address] Not available 09/04/2022 16:43:55 Plan of Treatment Reminders Order Date Submit Date Provider Last Modified By Organization Details Last Modified Time Details Appointments None recorded . Lab hbcab (hepatit is B core Ab) igm, serum 2021 [facility] (Lab), [address] [facility], [place], [address], 02:33:50 HBsAg (hepatit is B surface Ag), serum 2021 [facility] (Lab), [address] [facility], [place], [address], 02:33:49 hepatiti s C virus Ab, serum 2021 [facility] (Lab), [address] [facility] [facility], [place], [address], 02:33:49 unlisted lab - HIV 1/2 antigen/ antibody , reflex confirma tion 2021 [facility] (Lab), [address] [facility], [place], [address], 2 02:33:51 RPR (rapid plasma reagin), serum 2021 [facility] (Lab), [address], [place], [address], 2 02:33:50 Referral urologis t referral - Recurren t urinary tract infectio nPlease contact this patient to schedule an appointm ent.Scott ched are the patients demograp hics and most recent office visit notes.If you have any question s, please contact me at [phone].Th ank yandel,Shahriar bang, Referral 's 2021 [facility] [address], [place], [address], 2 16:04:31 Procedures None recorded . Surgeries None recorded . Imaging US, obstetri c, transvag inal 2022 023 [facility] [address], [place], [address], 3 22:24:33 US, obstetri c, transvag inal 2022 023 [facility], [address], [place], [address], 3 21:02:16 Medication Orders None recorded . Patient TargetsNo targets recorded. Patient InstructionsNo instructions recorded. Reason for Referral Urologist Referral for Recur rent urinary tract infection Recurrent urinary tract infection Recurrent urinary tract infectionPlease contact this patient to schedule an appointment.Attached are the patients demographics and most recent office visit notes.If you have any questions, please contact me at [phone].Thank you,Kasandra, Referral's Referring Physician: Fariha Saenz, AIR/OCEAN EXPORT CLERK, Encounter Date: 07/24/2022 Results Created Date Observation Date Name Description Value Unit Range Abnormal Flag Note LastModifiedBy Organization Detail LastModifiedTime 07/24/20 22 07/24/2022 CT/GC AND TRICH OMONA S VAGIN TAMELA (RRNA ), SWAB chlamydia trachomatis, PCR Negati ve negati ve Not Available [facility] (Lab) [address] [facility], [place], [address], 07/25/2022 17:30:54 07/24/20 22 07/24/2022 CT/GC AND TRICH OMONA S VAGIN TAMELA (RRNA ), SWAB neisseria gonorrhoeae, PCR Negati ve negati ve Not Available [facility] (Lab) [address] [facility], [place], [address], 07/25/2022 17:30:54 07/24/20 22 07/24/2022 CT/GC AND TRICH OMONA S VAGIN TAMELA (RRNA ), SWAB trichomonas vaginalis ribosomal RNA (rrna) Negati ve negati ve Not Available [facility] (Lab) [address] [facility], [place], [address], 07/25/2022 17:30:54 07/24/20 22 07/24/2022 HEPAT ITIS B SURFA CE ANTIG EN hepatitis B surface antigen Non-re active non-re active This assay was perfo rmed using [employer] ratio n reage nts and test kits. Value s obtai goldy with other assay metho ds or kits canno t be used inter longo eably . Not Available [facility] (Lab) [address] [facility], [place], [address], 07/26/2022 02:33:49 07/24/20 22 07/24/2022 HEPAT ITIS C ANTIB CESAR SCREE N, REFLE X TO CONFI RMATI ON hepatitis C antibody Non-re active non-re active Antib odies to HCV Not Detec claudine, does not exclu de the possi bilit y of expos ure to HCV. Not Available [facility] (Lab) [address] [facility], [place], [address], 07/26/2022 02:33:49 07/24/20 22 07/24/2022 RPR SCREE N/REF REFUGIO TITER /FTA RPR screen Nonrea ctive nonrea ctive Not Available [facility] (Lab) [address] [facility], [place], [address], 07/26/2022 02:33:50 07/24/20 22 07/24/2022 HEPAT ITIS B CORE, IGM hepatitis B core IgM antibody Negati ve negati ve Not Available [facility] (Lab) [address] [facility], [place], [address], 07/26/2022 02:33:50 07/24/20 22 07/24/2022 HIV 1/2 ANTIG EN/AN TIBOD Y, REFLE X CONFI RMATI ON HIV Ag/Ab NON-RE ACTIVE non-re active HIV-1 antig en and HIV-1 /HIV- 2 antib odies were not detec claudine. There is no labor atory evide nce of HIV infec tion. PLEAS E NOTE: This infor matio n has been discl osed to you from recor ds whose confi denti ality may be prote cted by state law. If your state requi res such prote ction , then the state law prohi bits you from citlaly puri furth er discl osure of the infor matio n witho ut the speci fic writt en conse nt of the perso n to whom it perta ins, or as other womack permi tted by law. A gener al autho rizat ion for the relea se of medic al or other infor matio n is NOT suffi cient for this purpo se. For addit ional infor matio n pleas e refer to http: //dean milesque stdia gnost ics.c om/fa q/FAQ 106 (This link is being provi ded for infor matio nal/ educa cookie l purpo ses only. ) The perfo rmanc e of this assay has not been clini yudith valid ated in patie nts less than 2 years old. Perfo rming Organ izati on Infor grazyna n: Site ID: CB Name: [facility] Dhaliwal Addre ss: [address] [place] [address] Direc tor: Asael gonzalez M.D. 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 Elect cristal herman d by Sarah Daniel on 09/05 at 6:44 PM ----- ----- ----- ----- ----- ----- ----- ----- ----- ----- ----- ----- ----- ----- ----- ----- ----- ---- COMME NT: Note: This speci men was revie wed by a Cytot echno logis t and/o r Patho logis t (as indic ated in this repor t) after evalu ation using the Thinp rep Imagi ng Syste m. CLINI MALI INFOR MATIO N: Menst rual Statu s: LMP (if appli cable ): Clini mali Histo ry/Pr eviou s Pap: Type of Neopl ricarda (if appli cable ): Signi fican t Clini mali Findi ngs: Other Histo ry: Hormo doni (if appli cable ): PAP EDUCA COOKIE L NOTE: The Pap Test is a scree minnie test with an inher ent false negat rosa rate. Liqui d-bas ed sampl ing may decre ase, but will not elimi toni, false negat rosa resul ts. A negat rosa resul t does not precl ude the prese nce and/o r devel opmen t of disea se, since the prese nce of abnor mal cells in the sampl e depen ds on the locat ion of the lesio n and sampl ing techn ique. Jolynn nued regul ar scree minnie is the best metho d of cance r preve ntion . If repor claudine cytol ogic findi ng do not corre late with physi mali and/o r histo rical findi ngs, furth er inves tigat ion is recom greg d, as clini yudith cordero nted. Not Available [facility] (Lab) [address], [place], [address], 09/05/2022 19:46:57 10/18/19 23 10/18/2022 BHCG, QUANT ITATI VE B-HCG 36.7 mIU/m L This assay was perfo rmed using [employer] ratio n reage nts and test kits. Value s obtai goldy with other assay metho ds or kits canno t be used inter longo eably . Refer ence Range s: Non-p regna nt, preme nopau lenin women : 0.0-5 .3 mIU/m L Postm enopa usal women : 0.0-7 .0 mIU/m L Brenda l Pregn pelon: Gesta cookie l Age bHCG Conc. - mIU/m L 3 Weeks 5.8 - 71.7 4 Weeks 9.5 - 750 5 Weeks 217-7 138 6 Weeks 158 - 31,79 5 7 Weeks 3,697 - 162,5 63 8 Weeks 32,06 5 - 149,5 71 9 Weeks 63,80 3 - 151,4 10 10 Weeks 46,50 9 - 186,9 77 12 Weeks 27,83 2 - 210,6 12 14 Weeks 13,95 0 - 62,53 0 15 Weeks 12,03 9 - 70,97 1 16 Weeks 9,040 - 56,45 1 17 Weeks 8,175 - 55,86 8 18 Weeks 8,099 - 58,17 6 Not Available [facility] (Lab) [address], [place], [address], 10/19/2022 03:15:51 10/15/19 23 10/15/2022 US, obste tric, trans vagin al No observ ation record ed. [email or web address] [facility] [address], [place], [address], 10/15/2022 18:30:12 10/15/19 23 10/15/2022 US, obste tric, trans vagin al No observ ation record ed. [email or web address] [address], [place], [address], 10/16/2022 13:32:28 10/18/19 23 10/18/2022 US, obste tric, follo w-up No observ ation record ed. VIK [address], [place], [address], 11/02/2022 05:27:09 10/18/19 23 10/18/2022 US, obste tric, trans vagin al No observ ation record ed. [email or web address] [facility] [address], [place], [address], 10/18/2022 17:08:24 Result Notes None recorded. Procedures Surgical History Date Name Laterality Status Provider Name and Address Organization Details Recorded Time Date of Last Pap Smear completed Gege Deleon [facility] 09/04/2022 16:45:55 1 extraction of wisdom tooth completed Gege Deleon [facility] 09/04/2022 16:48:23 3 tonsilectomy/a denoids completed Gege Deleon [facility] 09/04/2022 16:48:15 Imaging Results None recorded. Procedure Notes None recorded. Medical Equipment None Reported. Allergies No known drug allergies Medications Name Sig Start Date Stop Date Status Note LastModified by Organization Details LastModified Time eq sinus 12-hour 120mg tab TAKE 1 TABLET BY MOUTH TWICE DAILY NEEDED FOR CONGESTI ON 09/04 completed Not Available Not Available Not Available metformin 500 mg tablet TAKE 1 TABLET BY MOUTH TWICE DAILY WITH MEALS 07/24 completed Not Available Not Available Not Available trazodone 50 mg tablet TAKE 1 TABLET BY MOUTH NIGHTLY 07/24 completed Not Available Not Available Not Available fluconazo le 150 mg tablet TAKE ONE TABLET BY MOUTH A ONE-TIME DOSE 07/24 completed Not Available Not Available Not Available Accu-Chek Softclix Lancets USE TO TEST BLOOD SUGAR TWICE DAILY active Not Available Not Available No t Available amlodipin e 5 mg tablet TAKE 1 TABLET BY MOUTH ONCE DAILY active Not Available Not Available No t Available sulfameth oxazole 800 mg-trimet hoprim 160 mg tablet TAKE 1 TABLET BY MOUTH EVERY 12 HOURS 07/24 completed Not Available Not Available Not Available glimepiri de 1 mg tablet TAKE 1 TABLET BY MOUTH ONCE DAILY IN THE MORNING WITH BREAKFAS T active Not Available Not Available No t Available phenazopy ridine 100 mg tablet TAKE 2 TABLETS BY MOUTH THREE TIMES DAILY FOR 2 DAYS 07/24 completed Not Available Not Available Not Available amlodipin e 10 mg tablet TAKE 1 TABLET BY MOUTH EVERY DAY 07/24 completed Not Available Not Available Not Available cephalexi n 500 mg capsule TAKE 1 CAPSULE BY MOUTH TWICE DAILY FOR 7 DAYS 07/24 completed Not Available Not Available Not Available metformin 1,000 mg tablet take 1 tablet by oral route 2 times every day with morning and evening meals 07/24 completed Prescrib ed Elsewher e: Yes Loca tion: [facility] odify By: martita Carcamo ncounter DateTime : 11/21/19 18 11:00:00 AM Not Available Not Available Not Available sertralin e 25 mg tablet TAKE 1 TABLET BY MOUTH ONCE DAILY ALONG WITH 50 MG FOR A TOTAL OF 75 MG active Not Available Not Available No t Available metoprolo l succinate ER 25 mg tablet,ex tended release 24 hr 09/04 completed Not Available Not Available Not Available lorazepam 1 mg tablet TAKE 1 TABLET BY MOUTH ONCE A DAY NEEDED FOR ANXIETY OR SLEEP 10/03 completed Not Available Not Available Not Available fluticaso ne propionat e 50 mcg/actua tion nasal spray,lavelle pension USE 1 TO 2 SPRAY(S) IN EACH NOSTRIL ONCE DAILY DIRECTED 09/04 completed Not Available Not Available Not Available sertralin e 50 mg tablet TAKE 1 TABLET BY MOUTH ONCE DAILY ALONG WITH 25 MG FOR A TOTAL OF 75 MG. active Not Available Not Available No t Available Lily (28) 3 mg-0.03 mg tablet take 1 tablet by oral route every day 07/24 completed Prescrib ed Elsewher e: No Locat ion: [facility] odify By: [email or web address] Encount er DateTime : 11/21/19 18 11:00:00 AM Not Available Not Available Not Available spironola ctone 50 mg tablet take 1 tablet by oral route every day 07/24 completed Prescrib ed Elsewher e: Yes Loca tion: [facility] odify By: martita [email or web address] DateTime : 11/21/19 18 11:00:00 AM Not Available Not Available Not Available nitrofura ntoin monohydra te/macroc rystals 100 mg capsule TAKE 1 CAPSULE BY MOUTH EVERY 12 HOURS FOR 7 DAYS. DRINK PLENTY OF FLUIDS AND TAKE PROBIOTI C 07/24 completed Not Available Not Available Not Available sertralin e 07/24 completed Not Available Not Available Not Available glimepiri de 09/04 completed Not Available Not Available Not Available Januvia 25 mg tablet 10/15 completed Not Available Not Available Not Available Januvia 50 mg tablet 09/04 completed Not Available Not Available Not Available Januvia 100 mg tablet TAKE 1 TABLET BY MOUTH ONCE DAILY active Not Available Not Available No t Available Accu-Chek Guide test strips USE TO TEST BLOOD SUGAR TWICE DAILY active Not Available Not Available No t Available Accu-Chek Guide Glucose Meter USE TO TEST BLOOD SUGAR TWICE DAILY active Not Available Not Available No t Available Vitals Date Recorded Body height Body mass index (BMI) Body weight Systolic blood pressure Diastolic blood pressure Provider Name and Address Organization Details Last Updated DateTime 10/15/2022 166.34 cm 51.3 kg/m2 739054.4 1 g 149 mm[Hg] 95 mm[Hg] Emy Pimentel [facility] 3 12:38:20 Date Recorded Body height Body mass index (BMI) Body weight Systolic blood pressure Diastolic blood pressure Provider Name and Address Organization Details Last Updated DateTime 07/24/2022 162.56 cm 54.3 kg/m2 624966.6 3 g 138 mm[Hg] 85 mm[Hg] Jessica Soto [facility] 2 16:15:55 Date Recorded Systolic blood pressure Diastolic blood pressure Provider Name and Address Organization Details Last Updated DateTime 09/04/2022 132 mm[Hg] 78 mm[Hg] Sarah River, [facility] [address], [place], [address], [facility] 09/04/2022 22:13:42 Date Recorded Body height Body mass index (BMI) Body weight Provider Name and Address Organization Details Last Updated DateTime 09/04/2022 166.34 cm 52.3 kg/m2 464634.97 g Gege Deleon [facility] 09/04/2022 16:44:30 Social History Question Answer Notes LastModified by Organizat ion Details LastModified Time Tobacco Smoking Status Never Smoker Mendez calhoun, [facility] 10/18/2022 15:42:58 Do You Have An Advance Directive? No Information n ot available 07/24/2022 How Many Years Have You Consumed Alcohol? 7 Information not available 07/24/2022 Are You Blind Or Do You Have Difficulty Seeing? No Information n ot available 07/24/2022 What Is Your Level Of Caffeine Consumption? Moderate Information not available 07/24/2022 How Much Tobacco Do You Chew? None Information not available 07/24/2022 In The 14 Days Before Symptom Onset, Have You Had Close Contact With A Laboratory-confirm ed COVID-19 While That Case Was Ill? No Information n ot available 07/24/2022 In The 14 Days Before Symptom Onset, Have You Had Close Contact With A Person Who Is Under Investigation For COVID-19 While That Person Was Ill? No Information not available 07/24/2022 Have You Been To An Area Known To Be High Risk For COVID-19? No Information not available 07/24/2022 Are You Deaf Or Do You Have Serious Difficulty Hearing? No Information not available 07/24/2022 What Type Of Diet Are You Following? REGULAR Information n ot available 07/24/2022 What Is The Highest Grade Or Level Of School You Have Completed Or The Highest Degree You Have Received? [id number] Information not available 07/24/2022 Are There Any Guns Present In Your Home? No Information not available 07/24/2022 Do You Use Protection During Sex? No Information not available 07/24/2022 Do You Use Your Seat Belt Or Car Seat Routinely? Yes Information not available 07/24/2022 Do You Have Smoke And Carbon Monoxide Detectors In Your Home? Yes Information not available 07/24/2022 How Much Tobacco Do You Smoke? No Information not available 07/24/2022 Do You Use Sunscreen Routinely? No Information not available 07/24/2022 Have You Used IV Drugs? No Information not available 07/24/2022 Do You Have Difficulty Walking Or Climbing Stairs? No Information not available 10/18/2022 Sex: Female Functional Status Question Answer Note LastModified by Organizat ion Details LastModified Time Do you use any illicit or recreational drugs? No Information not available 07/24/2022 What is your level of alcohol consumption? Occasional Information not available 07/24/2022 Are you able to walk? YESWOREST Information not available 07/24/2022 Are you able to care for yourself? 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 No [email or web address] Information not available 10/18/2022 What is your exercise level? Occasional Information not available 07/24/2022 Mental Status Question Answer Note LastModified by Organization D etails LastModified Time Do you feel stressed (tense, restless, nervous, or anxious, or unable to sleep at night)? [id number] Information not available 07/24/2022 Family History Relationship Description Onset Age of this Age Resolved Age Notes LastModified by Organization Details LastModified Time Mother Heart disease [email or web address] Not available 09/04 16:45:11 Mother Diabetes mellitus [email or web address] Not available 09/04 16:45:11 Mother Polycystic ovary syndrome [email or web address] Not available 2022 15:42:58 Mother Cyst of ovary [email or web address] Not available 2022 15:42:58 Mother Coronary arterioscler osis [email or web address] Not available 2022 15:42:58 Mother Congestive heart failure [email or web address] Not available 2022 15:42:58 Mother Sleep disorder [email or web address] Not available 2022 15:42:58 Unspecified Relation Diabetes mellitus [email or web address] Not available 09/04 16:45:11 Unspecified Relation Malignant tumor of breast [email or web address] Not available 09/04 16:45:11 Sister Diabetes mellitus [email or web address] Not available 09/04 16:45:11 Maternal Grandmother Coronary arterioscler osis [email or web address] Not available 2022 15:42:58 Medical History Condition Response Allergies (Food, seasonal, environmental ) Y Other N Breast Cancer N Drug/Latex Allergies/Reactions N Blood Transfusion N Dermatologic Disorders Y Lung Disease N Defects or Inherited Disease N Breast Problem N Gestational Diabetes N Hematologic disorders N Anesthesia Complications N History of STI N Deep Vein Thrombosis N Polycystic ovary syndrome N Anxiety Disorder Y Autoimmune disease N Arthritis N Infertility N Polyps N Acid Reflux (GERD) N History of abnormal pap N Cancer N Stroke N Varicosities N Neurologic/Epilepsy N Endometriosis N High Cholesterol N Headaches N Fibromyalgia N Kidney Disease N Heart Problems N Kidney or Bladder Problems N Thyroid Problems N GI Problems N Eating Disorder N Anemia N Art (IVF or FET) N Psychiatric Illness N Ovarian Cancer N Diabetes Y Pulmonary (TB, Asthma) N Hepatitis/Liver Disease N No Past Medical History N Eczema N Urinary Tract Infection N Asthma N Trauma/Violence N Depression/ depression Y Heart Disease N Pre-Eclampsia N Hypertension N Osteoporosis N Thrombophilias N Gynecological History Statement/Question Response Abnormal Pap N Flow Moderate Date of Last Mammogram Date of LMP 08/23/2022 N Was last menstrual period normal Y STIs/STDs N HPV Vaccine Y Duration of Flow (days) 4 Current Control Method None Frequency of Cycle (Q days) 29 Sexually Active? Y Date of DEXA bone scan Age of first menstrual cycle 11 Date of Last Pap Smear 09/04/2022 Sexual Problems? N LMP Definite N Obstetrics History GPAL:G 1 P 0 0 1 0 Type Value Spontaneous 1 Living 0 Total 1 Past Encounters Encounter ID Performer Location Encounter Start Date Encounter Closed Date Diagnosis/Indication Diagnosis SNOMED-CT Code Diagnosis ICD10 Code Diagnosis Note [id number] YASMIN Domingo [facility] [address] [address] 07/24/2022 15:21:15 07/24/2022 17:56:48 Recurrent urinary tract infection 295555354 N39.0 No current UTI symptoms, urologist referral sent for recurrent UTI's Venereal d isease screening 092662110 Z11.3 STI endocervic al testing sentBlood STI testing orderedRT for WWEDaily PNV encouraged Hidradenit is suppurativa 41416008 L73.2 Following with [facility] dermatolog yContinue regimen prescribed by urology Time spent in visit is a total of 22 mins with at least 50% of visit consisting of counseling and review of plan of care. Sexually t ransmitted infectious disease [id number] A64 [id number] Sarah River [facility] [address] [address] 09/04/2022 16:32:03 09/05/2022 10:18:46 Gynecologic examination 06743621 Z01.419 Take Calcium with Vitamin D 1200mg daily if not receiving in daily diet. It is strongly advised to have an annual flu shot and up can obtain at most pharmacies . If you have not had a TDap shot in the last 10 years you should obtain one as well. Discussed with patient & provided with informatio n regarding Gardisil vaccine to prevent the 4 strains for HPV that cause cervical cancer if under age 26. Encourage safe sexual practices, to use condoms and limit partners if not already in a monogamous relationsh ip. Do monthly self breast exams. Have mammogram yearly or every other year depending on family history. BRCA testing is now available for patients with strong genetic history of female cancer. If interested contact the office. Engage in daily exercise of low impact aerobic exercise 45-60 minutes 4-5 times weekly. Avoid tobacco and illicit drugs as well as using moderation with alcohol intake less than 1-2 8 oz beverages daily. This lifestyle behavior pattern will lead to less health conditions and longer life span. If BMI greater than 25 weight watchers or dietary consult advised. Patient received above instructio ns, and questions have been answered. If you have any questions please call or respond to this email. Patient was made aware of the patient portal and may obtain a paper copy of today's plan if desired. Pap/hpv sent STD Screen declined Genetic Screen discussed Colon Screen PCP Dexa Screen na Routine Labs PCPMammo age 40yo unless otherwise indicated. [id number] Andrea Gonzalez MD [facility] [address] [address] 10/15/2022 12:01:44 10/15/2022 12:38:00 Uncertain viability of [id number] O36.80X0 O20.0 Z3A.01 [id number] Andrea Gonzalez MD [facility] [address] [address] 10/15/2022 12:02:17 10/15/2022 13:09:46 Complete miscarriage [id number] O03.9 This patient is a 27 female who presents for completed discussed the etiology, frequency, natural history, and treatment of this condition. Spent more than 35 minutes talking about the above, as well as, her history, the particular findings of her case, and detail of her the treatment options. We discussed the risk benefits of each option. She understand s the risk include infection and hemorrhage . patient does not require treatment for the completed Ab. We talked about signs and symptoms of infection. patient is return for a negative test in 2 weeks. She was warned about the complicati ons associated with uncontroll ed diabetes and hypertensi on in . She was asked to get her diabetes under control before getting . She is asked to follow-up with primary care doctor for her hypertensi on. [id number] Andrea Gonzalez MD [facility] [address] [address] 10/18/2022 15:42:46 10/18/2022 16:45:24 Missed miscarriage [id number] O02.1 Health Concerns Section Related Observation LastModified by Organization Detai ls LastModified Time None Recorded Concern Status LastModified by Organization Details LastModified Time None Recorded Advance Directives Directive N: Payers Encounter Date Sequence Insurance Name Policy Number Policy Shahid Covered Member ID Shahid Member ID Guarantor Name 07/24/2022 1 [employer] (O) [id number] Shervont i L Abdoul [id number] Shervonti Abdoul 07/24/2022 2 [place] Shervonti Abdoul [id number] Shervonti Abdoul 09/04/2022 1 [employer] (O) [id number] Shervont i L Abdoul [id number] Shervonti Abdoul 09/04/2022 2 [place] Shervonti Abdoul [id number] Shervonti Abdoul 10/15/2022 1 [employer] (O) [id number] Shervont i L Abdoul [id number] Shervonti Abdoul 10/15/2022 2 [place] Shervonti Abdoul [id number] Shervonti Abdoul 10/15/2022 1 [employer] (O) [id number] Hilary Shcreiber [id number] Glennntcb Schreiber 10/15/2022 2 [place] [facility] AID Alex Schreiber [id number] Alex Schreiber 10/18/2022 1 [employer] (HMO) [id number] Glennnt cb Schreiber [id number] Glennntcb Schreiber 10/18/2022 2 [place] [facility] Alex Schreiber [id number] Alex Schreiber Notes Date Note Type Note Provider Name and Address Organization Details Recorded Time 2 text/html 26yo P0Lveuwnv hx : Diabetes, Hidradenitis suppurativaPresents for STI testingSA with steady male partner, BC not practiced - considering TTCOften will get UTI's - trying to get into a urologistNo UTI symptoms todayFollows with dermatology for HS, was on humira but stopped. Considering having a surgical procedure per patient. Will use hibiclens and clindamycin cream PRNFollows vulvar care guidelinesPap last 2020 YASMIN Domingo [address], [place], [address], [facility] 07/24/2022 16:42:19 2 text/html Annual GYNReported bypatient.Menstrual cycle:Normal menses Urinary symptoms:No hematuria; No incontinence Vulva:No genital lesion Vagina:Normal vaginal discharge Breast:No breast pain; No breast lump; No nipple discharge Current Contraception: control not practiced Sexual complaints:No sexual complaints; No pain during intercourse; Normal libido Menopausal Symptoms:No menopausal symptoms; Normal vaginal lubrication Psychological symptoms:No depression; No anxiety; No PMDD Preventive measures:Encourage self breast examination; Encourage regular exercise; Encourage no tobacco use; Encourage regular mammograms starting age 40; Followed with yearly pap smears YASMIN Rich-BC [address], [place], [address], [facility] 09/04/2022 22:15:54 3 text/html This patient is a 27 female who presents for completed discussed the etiology, frequency, natural history, and treatment of this condition. Spent more than 35 minutes talking about the above, as well as, her history, the particular findings of her case, and detail of her the treatment options. We discussed the risk benefits of each option. She understands the risk include infection and hemorrhage. patient does not require treatment for the completed Ab. We talked about signs and symptoms of infection. patient is return for a negative test in 2 weeks. She was warned about the complications associated with uncontrolled diabetes and hypertension in . She was asked to get her diabetes under control before getting . She is asked to follow-up with primary care doctor for her hypertension. Andrea Gonzalez MD [address], [place], [address], [facility] 10/15/2022 13:09:25 OBGyn Episode Ob Episode Information Episode Created Date Number of Fetuses Patient Bloodtype Patient rh Status Prepregnancy Weight lbs Domestic Partner Domestic Partner Phone Father Name Ceramic Chemist Status 10/15/19 23 1 CLOSED Fetus Data First Name Last Name Admitted to NICU Weight (g) Sex Living Outcome Pediatric Complications Fetus ID Race Codes Race Delivery Type , Spontane ous [id number] Jose Elias Calculation Initial Jose Elias Date Initial Exam Date Initial Exam Provider Initial Ultrasound Date Last Menstrual Period Date Ultra Sound Weeks Gestation 0 Eighteen To Twenty Week Jose Elias Update Ultra Sound Date Fundal Height At Umbil Quickening Date Ultra Sound Latest Weeks Gestation Final Jose Elias Confirmed By Final Jose Elias Confirmed Date Final Jose Elias Date Ultra Sound Latest Days Gestation 0 0 Menstrual History Last Menstrual Date Menses Monthly On Bcp Conception Prior Menses Frequency Hcg Plus Date Menarche Onset Age Delivery Information Delivery Date Delivery Type Labor Anesthesia Weeks Gestation Incision Type Labor Labor Length Hrs Delivered By Post Complications Tubal Sterilization Discharge Date Comments 3 Discharge Information Feeding Method Contraceptive Method Maternal HG B and HCT Levels
--- OUTSIDE RECORDS SUMMARY | 2025-02-14 15:23 | XMS_ITS | Clinical Summary ---
Author Organization [facility] Address [address] [place] [address] Care Team Providers Care Yard Associate Name Role Phone Hans Alatorre MD Primary Care Provider [phone] Source Comments [facility],non-[facility] Affiliates and Associated Physician Practices is amultiple site organization consisting of ambulatory clinics and hospital sitesin [place], [place], [place] and [place]. This disclosure is being madepursuant to the Care Everywhere program and may not contain all information available regarding this patient. Last updated 18.[facility]ander[facility] Allergies No known active allergies Medications * Be aware that medications may not be up to date on this document. Alwaysverify current medications with the patient. metFORMIN (GLUCOPHAGE) 500 MG tablet Take 500 mg by mouth 2 times daily with morning and evening meal Active drospirenone-et hinyl estradiol (OCELLA) 3-0.03 MG tablet Take 1 tablet by mouth once daily 3 packet 3 01/27/2018 Active Active Problems Problem Noted Date Diagnosed Date Type 2 diabetes mellitus without complication Obesity 01/27/2018 Family History Medical History Relation Name Comments CAD (Coronary Artery Disease) Maternal Grandfather CAD (Coronary Artery Disease) Mother Diabetes - Type 2 Mother Other Mother CHF Sleep Disorder - Other Mother Cancer - Breast Paternal Grandmother Diabetes - Type 1 Sister Diabetes - Type 2 Sister Relation Name Status Comments Maternal Grandfather Mother Paternal Grandmother Sister Social History Tobacco Use Types Packs/Day Years Used Date Smoking Tobacco: Never Smokeless Tobacco: Never Alcohol Use Standard Drinks/Week Comments No 0 (1 standard drink = 0.6 oz pur e alcohol) Comments No Sex and Gender Information Value Date Recorded Sex Assigned at Not on file 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 Gender Identity Not on file Sexual Orientation Not on file Occupation Industry Job Start Date Job End Date student Not on file Not on file Not on file Last Filed Vital Signs Vital Sign Reading Time Taken Comments Blood Pressure 132/84 01/27/2018 3:21 PM CDT Pulse - - Temperature - - Respiratory Rate - - Oxygen Saturation - - Inhaled Oxygen Concentration - - Weight 132.5 kg (292 lb) 01/27/2018 3:21 PM CDT Height 160 cm (5' 3) 01/27/2018 3:21 PM CDT Body Mass Index 51.73 01/27/2018 3:21 PM CDT Plan of Treatment Health Maintenance Due Date Last Done Comments HIV SCREENING 2009 HEPATITIS C SCREENING 09/26/2012 DTAP/TDAP/TD VACCINES (1 - Tdap) 2013 HEPATITIS B VACCINE (1 of 3 - 19+ 3-dose series) 2013 COVID-19 VACCINE (1 - 2023-2 5 season) 2024 DEPRESSION SCREENING 09/09/2024 INFLUENZA VACCINE (Season Ended) 2025 ZOSTER VACCINE (1 of 2) 2044 HIB VACCINE Aged Out No longer eligi ble based on patient's age to complete this topic HPV VACCINE Aged Out No longer eligi ble based on patient's age to complete this topic MENINGOCOCCAL (Group B) VACC INE SHARED DECISION-MAKING Aged Out No longer eligibl e based on patient's age to complete this topic MENINGOCOCCAL GROUPS A/C/Y/W VACCINE Aged Out No longer eligible b ased on patient's age to complete this topic PNEUMOCOCCAL VACCINE Aged Out No long er eligible based on patient's age to complete this topic Insurance [facility] Care Teams Yard Associate Relationship Specialty Start Date End Date Hans Alatorre MD [address] [facility] [address] [place] [address] PCP - General 12/25/17
--- OUTSIDE RECORDS SUMMARY | 2025-02-14 15:23 | XMS_ITS | Encounter Summary ---
Author Organization [facility] Address [address] [place] [address] Care Team Providers Care Ribbon Cutter Name Role Phone Unknown, Notinfile Primary Care Provider Unavail able Encounter Details Date Type Department Care Team (Late st Contact Info) Description 02/11/2025 Results Follow-Up [facility] Con[facility]ient Care at [address] [address] NP [address] [facility] [address] [place] [address] XR Ankle Left 3+ Vw, XR Tibia Fibula Left 2 Vw Social History Tobacco Use Types Packs/Day Years Used Date Smoking Tobacco: Never Assessed Comments Unknown Sex and Gender Information Value Date Recorded Sex Assigned at Not on file 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 Pt has viewed results in [facility] * Result Encounter Note - Carmen Akbar LPN - 02/11/2025 9:04 AM CDT Attempted to contact pt regarding xray results. Phone number was not working. documented in this encounter Plan of Treatment Not on file documented as of this encounter Visit Diagnoses Not on filedocumented in this encounter Care Teams Ribbon Cutter Relationship Specialty Start Date End Date Unknown, Notinfile PCP - General 02/10/25 documented as of this encounter
--- OUTSIDE RECORDS SUMMARY | 2025-02-14 15:23 | XMS_ITS | Encounter Summary ---
Author Organization [facility] Address [address] [place] [address] Phone Care Team Providers Care Fish Bin Tender Name Role Phone Amy Rinaldi Primary Care Provide r Reason for Visit * Reason Onset Date Comments Urinary Frequency 04/28/2021 RE: EXTERNAL U ROLOGY REFERRAL Alex is being referred to Urology in [facility] in [place], [place] other specialist in patient's insurance network Encounter Details Date Type Department Care Team (Late st Contact Info) Description 06/08/2021 Telephone [facility] - Primary Care - [place] [address] [place] [address] Amy Rinaldi, PAC [address] [place] [address] Urinary Frequency (RE: EXTERNAL UROLOGY REFERRAL Alex is being referred to Urology in [facility] in [place], [place] other specialist in patient's insurance network ) Social History Tobacco Use Types Packs/Day Years [...] Master's degree (e.g., MA, MS, Brett, MEd, [employer], [employer]) 09/12/2020 Sexually Active Control Partners Comments [...] or suspected to have Coronavirus / COVID-19? Yes 05/29/2021 6:40 AM CDT documented as of this encounter Miscellaneous Notes * Telephone Encounter - Amy Rinaldi PAC - 06/08/2021 4:29 PM CDT Please make patient aware of attempts and have Her to call center for appointment * Telephone Encounter - Jolynn Oconnor - 06/08/2021 1:49 PM CDT RE: EXTERNAL UROLOGY REFERRAL Alex is being referred to Urology in [facility] in [place], [place] other specialist in patient's insurance network for Recurrent UTI x 4 this year, 1 episode of with sepsis Multiple attempts have been made by referral center to reach the patient and there has been no response back. No further follow up will be attempted. Thank you, [facility] [address] [place] [address] or documented in this encounter Plan of Treatment Not on file documented as of this encounter Visit Diagnoses Not on filedocumented in this encounter Additional Health Concerns Assessment Noted Time PHQ-9 Depression Total Score: 0 12/28/19 12:01 PM CDT documented as of this encounter Care Teams Fish Bin Tender Relationship Specialty Start Date End Date Amy Rinaldi, PAC PCP - General Physician Renewal Specialist 09/12/20 08/19/23 documented as of this encounter
--- OUTSIDE RECORDS SUMMARY | 2025-02-14 15:23 | XMS_ITS | Continuity of Care Document ---
Author Organization [facility] Address [address] [place] [address] [place] [address] Phone Care Team Providers Care Cook Fry Name Role Phone Hans Alatorre MD Unavailable Unavailable Allergies, Adverse Reactions, Alerts Substance Reaction Status Criticality No Known Allergies Active No Inform ation Medications Medication Instructions Dosage Effective Dates (start - stop) Status Comments Amaryl 2 mg tablet take 1 tablet by ora l route every day - Active metformin 1,000 mg tablet take 1 tablet by oral route 2 times every day with morning and evening meals 1000 MG - Active Keflex 500 mg capsule take 1 capsule by oral route every 12 hours - Active spironolactone 100 mg tablet take 1 tablet by oral route every day 100 MG - Active Procedures Procedure Date PREV VISIT, EST, AGE 18-39 OFFICE/OUTPATIENT VISIT, EST OFFICE/OUTPATIENT VISIT, EST OFFICE/OUTPATIENT VISIT, EST PREV VISIT, EST, AGE 18-39 OFFICE/OUTPATIENT VISIT, EST OFFICE/OUTPATIENT VISIT, EST PREV VISIT, EST, AGE 18-39 OFFICE/OUTPATIENT VISIT, EST OFFICE/OUTPATIENT VISIT, EST OFFICE/OUTPATIENT VISIT, EST OFFICE/OUTPATIENT VISIT, EST OFFICE/OUTPATIENT VISIT, EST OFFICE/OUTPATIENT VISIT, EST PREV VISIT, NEW, AGE 18-39 OFFICE/OUTPATIENT VISIT, NEW Advance Directives Directive Yes / No Effective Date File Name No Information Encounters Encounter Description Practice Location Reason(s) For Visit Diagnoses Date Provider Providers Copied on Encounter PREV VISIT, EST, AGE 18-39 [facility], [address], [place], [place], [address], [place] tel:[phone] [facility] Medicine Physical (chief complaint) Encntr for general adult medical exam w/o abnormal findings 9 Landry Maxwell. [address], [place], [place], [address] , [place]. tel:[phone] Referring Provider: Enriqueta Cervantes [address], [place], [place], [address]. tel:[phone] OFFICE/OUTPA TIENT VISIT, [facility], [address], [place], [place], [address], [place] tel:[phone] [facility] DM (chief complaint) fatty liver1 (chief complaint) obesity1 (chief complaint) Acne1 (chief complaint) Type 2 diabetes mellitus without complicationsFatty liverBody mass index (BMI) 50-59.9 , adultAcne 9 Landry Maxwell. [address], [place], [place], [address] , [place]. tel:[phone] Referring Provider: Enriqueta Cervantes [address], [place], [place], [address]. tel:[phone] OFFICE/OUTPA TIENT VISIT, EST [facility], [address], [place], [place], [address], [place] tel:[phone] [facility] DM (chief complaint) Body mass index (BMI) 50-59.9 , adultType 2 diabetes mellitus without complications 9 Landry Maxwell. [address], [place], [place], [address] , [place]. [phone] Referring Provider: En[address]eta Cerv[address], [place], [place], [address]. tel:[phone] OFFICE/OUTPA TIENT VISIT, [facility], [address], [place], [place], [address], [place] tel:[phone] [facility] Medicine DM (chief complaint) fatty liver1 (chief complaint) HLP (chief complaint) Body mass index (BMI) 50-59.9 , adultType 2 diabetes mellitus without complicationsHyperl ipidemiaFatty liver 9 Landry Garcia [address], [place], [place], [address] , [place]. tel:[phone] Referring Provider: Enriqueta Cervantes [address], [place], [place], [address]. tel:[phone] PREV VISIT, EST, AGE 18-39 [facility], [address], [place], [place], [address], [place] tel:[phone] [facility] Physical (chief complaint) Encntr for general adult medical exam w/o abnormal findings 8 Landry Garcia [address], [place], [place], [address] , [place]. tel:[phone] Referring Provider: Enriqueta Cervantes [address], [place], [address]. tel:[phone] OFFICE/OUTPA TIENT VISIT, EST [facility], [address], [place], [address], [place] tel:[phone] [facility] Medicine Acne1 (chief complaint) obeisty1 (chief complaint) metabolic1 (chief complaint) Body mass index (BMI) 50-59.9 , adultFatty liverMetabolic syndrome 8 Landry Garcia [address], [place], [address] , [place]. tel:[phone] Referring Provider: Enriqueta Cervantes [address], [place], [place], [address]. tel:[phone] OFFICE/OUTPA TIENT VISIT, EST [facility], [address], [place], [address], [place] tel:[phone] [facility] Medicine globulin (chief complaint) vitamin d (chief complaint) PreDM (chief complaint) weight loss1 (chief complaint) Abnormality of globulinAdult BMI of 50.0-59.9Vitamin D deficiency, unspecifiedMetaboli c syndrome Landry Garcia [address], [place], [place], [address] , [place]. [phone] Referring Provider: Enriqueta Cevrantes [address], [place], [place], [address]. tel:[phone] PREV VISIT, EST, AGE 18-39 [facility], [address], [place], [place], [address], [place] [phone] [facility] Physical (chief complaint) Encntr for general adult medical exam w/o abnormal findings Landry Garcia [address], [place], [address] , [place]. [phone] Referring Provider: Enriqueta Cervantes [address], [place], [place], [address]. tel:[phone] OFFICE/OUTPA TIENT VISIT, EST [facility], [address], [place], [address], [place] tel:[phone] [facility] flank pain1 (chief complaint) rash1 (chief complaint) HTN (chief complaint) Abdominal painRashEssential (primary) hypertension Landry Garcia [address], [place], [address] , [place]. tel:[phone] OFFICE/OUTPA TIENT VISIT, EST [facility], [address], [place], [address], [place] tel:[phone] [facility] DM (chief complaint) anxiety1 (chief complaint) renal stone1 (chief complaint) Type 2 diabetes mellitus without complicationsDepres sionHematuriaBody mass index (BMI) 50-59.9 , adult 7 Landry Garcia [address], [place], [address] , [place]. tel:[phone] Referring Provider: Enriqueta Cervantes [address], [place], [address]. tel:[phone] OFFICE/OUTPA TIENT VISIT, [facility], [address], [place], [address], [place] tel:[phone] [facility] DM (chief complaint) LFT (chief complaint) obesity (chief complaint) anxiety1 (chief complaint) Fatty liverType 2 diabetes mellitus without complicationsDepres sionAdult BMI of 50.0-59.9 6 Landry Maxwell. [address], [place], [address] , [place]. [phone] Referring Provider: Enriqueta Cervantes [address], [place], [place], [address]. tel:[phone] OFFICE/OUTPA TIENT VISIT, [facility], [address], [place], [address], [place] tel:[phone] [facility] DM (chief complaint) fatty liver1 (chief complaint) acathansis nigrans (chief complaint) Type 2 diabetes mellitus without complicationsFatty liverAcanthosis nigricans 6 Landry Maxwell. [address], [place], [address] , [place]. [phone] Referring Provider: Enriqueta Cervantes [address], [place], [place], [address]. tel:[phone] OFFICE/OUTPA TIENT VISIT, [facility], [address], [place], [address], [place] tel:[phone] [facility] DM (chief complaint) LFT (chief complaint) skin (chief complaint) Type 2 diabetes mellitus without complicationsAcanth osis nigricansLiver disease, unspecifiedBody mass index (BMI) 50-59.9 , adult 6 Landry Maxwell. [address], [place], [address] , [place]. [phone] Referring Provider: Enriqueta Cervantes [address], [place], [place], [address]. tel:[phone] OFFICE/OUTPA TIENT VISIT, EST [facility], [address], [place], [address], [place] tel:[phone] [facility] DM (chief complaint) LFT (chief complaint) vitamin D (chief complaint) Rash1 (chief complaint) Type 2 diabetes mellitus without complicationsLiver diseaseAcanthosis nigricans 6 Landry Maxwell. [address], [place], [address] , [place]. tel:[phone] Referring Provider: Enriqueta Cervantes [facility] [address], [place], [place], [address]. tel:[phone] PREV VISIT, NEW, AGE 18-39 [facility], [address], [place], [place], [address], [place] tel:[phone] [facility] Physical (chief complaint) Encounter for general adult medical exam w abnormal findingsHidradeniti s suppurativaHypergly cemiaAcanthosis nigricans 6 Landry Maxwell. [address], [place], [place], [address] , [place]. [phone] Referring Provider: Enriqueta Cervantes [facility] [address], [place], [place], [address]. tel:[phone] Family History Family Member Type Diagnosis Age At Onset Father Problem (finding) Unknown Sister Problem (finding) Diabetes mellitus type 2 Mother Problem (finding) CHF, COPD sleep apnea Payers Payer name Insurance type Covered constitution party ID Authoriza tion(s) No Information Social History Type Description Quantity Date Captured Comments Alcohol Use Details No Caffeine Use Details Unknown Tobacco Use Status Never smoked tobacco 2018 Smoking Status Never smoker Sex Female Vital Signs Date / Time: Height Weight BMI Pulse Rate Blood Pressure Temperature Respiratory Rate Body Surface Area Head Circumference BMI percentile Pulse Ox Inhaled Ox 11:14 PM 63.00 in 324.00 lbs 57.3 9 kg/m eter (2) 78 /min 130/70 mm[Hg] 97.1 F 17 /min Chief Complaint And Reason For Visit From encounter dated '08/25/2019 17:00'. Physical (chief complaint). Description: Pt needs annual physical Pt has DM. Pt has been noncompliant with metformin amaryl Pt has not been taking above meds since the summer after her mom and she just restarted above last month Pt does not check her blood glucose level. She lost all her supply during the move. Her mom recently pt has cystic acnes and hydradenitis both axilla and she also notices similar lesion on her scalp for the past several months with some drainage Pt notices pain around the lesion Pt denies any active pain around the axillary area Pt has not beenable to make it back to see her eviction specialist for one year and she needs refill of spironolactone, which did help with above symptoms. Pt has high LFT and also worsening DM Plan Of Treatment Date Type Action Status Goal Special diet education compl eted Goal Special diet education compl eted Goal Special diet education compl eted Goal Special diet education compl eted Goal Special diet education compl eted Goal Special diet education compl eted Goal Special diet education compl eted Referral Ordered: Surgery (related to Body mass index (BMI) 50-59.9 , adult) ordered Referral Ordered: Referrals: Surgery. Evaluate and treat ordered Referral Ordered: Carlos Enrique Godfrey [facility] : Surgery : Vascular Surgery (related to Metabolic syndrome) ordered Referral Referred To: Zarina Mann [address] [facility]
[address] [place], [phone] Ordered: Referrals: Zarina Mann. Evaluate and treat ordered Referral Referred To: Carlos Enrique Godfrey [address] [place], [phone] Ordered: Referrals: [facility] : Surgery : Vascular Surgery. Carlos Enrique Godfrey. Evaluate and treat ordered Referral Ordered: CT ABDOMEN W/O DYE ordered Referral Ordered: US EXAM, ABDOM, COMPLETE ordered Referral Ordered: Dermatology (related to Acanthosis nigricans) ordered Referral Ordered: Referrals: Dermatology. Evaluate and treat ordered History Of Present Illness Encounter Date Complaint History Of Alexandra nt Illness Physical Pt needs annual physical Pt has DM. Pt has been noncompliant with metformin amaryl Pt has not been taking above meds since the summer after her mom and she just restarted above last month Pt does not check her blood glucose level. She lost all her supply during the move. Her mom recently pt has cystic acnes and hydradenitis both axilla and she also notices similar lesion on her scalp for the past several months with some drainage Pt notices pain around the lesion Pt denies any active pain around the axillary area Pt has not been able to make it back to see her eviction specialist for one year and she needs refill of spironolactone, which did help with above symptoms. Pt has high LFT and also worsening DM DM Pt has DM pt paige es metformin and amaryl. Her A1c is improving. Pt denies any polyuria, polydipsia. Pt denies any neuropathy symptoms. Pt states that her BG is around 120s fatty liver1 Pt has fatty shayne er. Her LFT is stable. Pt denies any abd pain obesity1 Pt is morbidly o bese. Pt is interested in bariatric surgery Dr. Winter never contacted her. Acne1 pt has cystic ac ne. Pt is off spironolactone. Pt als has hidradenitis Pt was on spironolactone but she developed renal stone with it so she stopped it. Pt denies any acute flare up. DM Pt has DM. Pt is on metformin and amaryl and her BG is average around 130s pt denies any hypoglycemia Pt denies any polyuria, polydipsia. Pt denies any numbness. HLP Pt has high tG. Pt is trying to eat healthy fatty liver1 Pt has fatty shayne er Pt has mildly high LFT. Pt denies any abdominal pain DM Pt has DM Pt sta jeannie that she did not take metformin for two months recently. Pt denies any polyuria, polydipsia. her A1c was 7.4 recently Physical Pt needs annual physical. Pt has insulin resistance and she is on metformin. Pt sees CLINICAL PROVIDER TRAINER and she was told that she has PCOS and she told me she had normal pelvic ultrasound by CLINICAL PROVIDER TRAINER recently. Pt has regular period now. Pt also sees dermatology and she is on spironolactone for acne. Pt told me her T level was ok recently by dermatology. Pt still has hard time losing weight. Pt denies any other complaints metabolic1 Pt has metabolic syndrome. Pt did have insulin resistance. Pt is taking metformin and her A1c has been normal. Pt denies any polyuria polydpisia obeisty1 Pt is obese. Pt wants to try to lose weight. Pt failed diet and exercise. Acne1 Pt has acne and acanthosis nigrans. Pt is on spironolactone now by dermatology. Pt states that it did help with her acnes. weight loss1 Pt has been diet and exerciseing and intentionally losing weight. Pt denies any GI issue. PreDM Pt has metabolic syndrome. her A1c is normal now with metofrmin and also diet ane exercise. Pt takes spironolactone for hidradenitis and doing ok Pt sees dermatology vitamin d Pt has low vitam in D on lab globulin Pt has mild high globulin on her lab. Pt denies any fever or infection Physical Pt needs annual physical. Pt has borderline diabete. Pt takes metformin. Pt states that her BG is around 100. Pt denies any polyuria, polydipsia. Pt has hidradenitis and also acne. Pt is seeing dermatology and she is on spirnolactone. Pt denies any facial hair. Pt doing ok. Pt denies any other complaints. flank pain1 Pt c/o acute rig ht flank pain for one week. Pt denies any injury. Pt feels dull ache. pt denies any urinary symptoms. Pt has history of renal stone Pt denies any fever, chill. Pt denies any nausea, vomiting, diarrhea. Pt has very mild baseline dullache currently. Pt denie any UTI symptoms rash1 Pt notices some spotty rash around abdomen for one week. Pt denies any itching. Pt notices red initially but is fading now and almost gone. HTN Her BP is mildly high today. Pt denies any chest apin or headache renal stone1 Pt recenlty went to ER for suddent onset of flank pain. Pt went to ER and she actually passed a renal stone. Pt is on cipro now for UTI Pt denie any abd apin or any UTI symptoms. DM Pt has DM Pt atk es metformin and her BG is around 114 pt denies any polyuria, polydipsia Pt is seeing dermatology for nigrans. Pt is on spirnolactone now. Pt has some loose stool sometimes with metfomrin anxiety1 Pt has chronic a nxiety and depression Pt has not been taking effexor or prozac Pt states that her mood is better and she dose not need med anymore anxiety1 Pt has chronic a nxiety and depression. Pt feels irritable. Pt is on prozac but not working. Pt denies any suicidal or homicidal thought Pt denies any cyring spells obesity Additional infor jannette: Pt is obese. Pt has not been able to lose weight. Pt is trying low fat and low carb diet. LFT Pt has fatty shayne er Her LFT is ok NO hepatitis DM Pt has DM. Pt ta kes metformin. Pt has been watching her diet and food intake. Her A1c is much much better. Pt states that her BG is around 100. Pt feels well. acathansis nigrans Pt has acanth asis nigrans. Pt takes doxycycline but she is off now since she has fatty liver Pt also has headache with doxy and also nonbloody diarrhea. Pt is working with dermatology to try different abx. fatty liver1 Pt has fatty shayne er Pt is working on low fat and low carb diet. Pt denies any abd pain or any jaundice DM Pt has DM. Pt de jesus s been trying diet and exzercise and exercising daily. Her BG is around 100 on metformin only. Pt denies any numbness skin Pt has acanthasi s nigrans and also hiadradenitis. Pt just seen dermatology recently and was given cream and body wash and abx. Pt states that her skin rash is getting better. LFT Pt has mildly hi gh LFT. Pt has not done ultrasound yet. DM Pt has DM. Pt st arted metformin last month. Pt states that her BG is around 130s. Pt denies any polyuria, polydipsia. vitamin D Pt has low D. Pt denies any history of fracture Rash1 Pt has acathasis nigrans. Pt has appointment with dermatology in 7 days. Pt also has chornic hidradnitis but no active symptoms LFT Pt has mildly el evation of LFT. Pt denies any abd pain DM Pt has DM. Pt de nies any polyuria, polydipsia Pt denies any numbness Physical Pt needs annual physical pt has chornic anxiety and depression and she is on latuda and also prozac. Pt sees psychiatirst. Pt denies any suicidal or homnicidal thought. Pt states that she has been checking her BG and is around 200-300. Pt denies any polyuria, polydipsia. Pt denies any headache or any vision problem. Pt has chornic dark shade around her neck for several years. Pt denies any numbness. Pt also c/o cystic lesion both armpit and around her pubic area chronically with occassional drianage. Pt denies any drainage now. Pt denies any pain currently but she does have painsometimes. Instructions Date Instruction Additional Infor jannette Special diet education Related t o Body mass index (BMI) 50-59.9, adult Increase physical activity. Rela claudine to Type 2 diabetes mellitus without complications Special diet education Related t o Body mass index (BMI) 50-59.9, adult Increase physical activity. Rela claudine to Type 2 diabetes mellitus without complications Special diet education Related t o Body mass index (BMI) 50-59.9, adult Special diet education Related t o Body mass index (BMI) 50-59.9, adult Increase activity. Related to Hy perlipidemia Follow a low sodium diet. Relate d to Hyperlipidemia Special diet education Related t o Body mass index (BMI) 50-59.9, adult Perform monthly self breast examinations. Related to Encntr for general adult medical exam w/o abnormal findings Special diet education Related t o Body mass index (BMI) 50-59.9, adult Increase activity. Related to En cntr for general adult medical exam w/o abnormal findings Weight management Related to Fat ty liver Increase physical activity Relat ed to Fatty liver Special diet education Related t o Body mass index (BMI) 50-59.9 , adult Prescribed Activity and Exercise Education Related to Dietary Surveillance and Counseling Weight management Related to Abn ormality of globulin Prescribed Diet Educ ation/Lifestyle Education Regarding Diet Related to Dietary Surveillance and Counseling Prescribed Activity and Exercise Education Related to Dietary Surveillance and Counseling Prescribed Diet Educ ation/Lifestyle Education Regarding Diet Related to Dietary Surveillance and Counseling Increase activity. Related to En cntr for general adult medical exam w/o abnormal findings Prescribed Activity and Exercise Education Related to Dietary Surveillance and Counseling Prescribed Diet Educ ation/Lifestyle Education Regarding Diet Related to Dietary Surveillance and Counseling Prescribed Diet Educ ation/Lifestyle Education Regarding Diet Related to Dietary Surveillance and Counseling Prescribed Activity and Exercise Education Related to Dietary Surveillance and Counseling Prescribed Activity and Exercise Education Related to Dietary Surveillance and Counseling Prescribed Diet Educ ation/Lifestyle Education Regarding Diet Related to Dietary Surveillance and Counseling Prescribed Activity and Exercise Education Related to Dietary Surveillance and Counseling Prescribed Diet Educ ation/Lifestyle Education Regarding Diet Related to Dietary Surveillance and Counseling Prescribed Diet Educ ation/Lifestyle Education Regarding Diet Related to Dietary Surveillance and Counseling Prescribed Activity and Exercise Education Related to Dietary Surveillance and Counseling Prescribed Activity and Exercise Education Related to Dietary Surveillance and Counseling Prescribed Diet Educ ation/Lifestyle Education Regarding Diet Related to Dietary Surveillance and Counseling Prescribed Activity and Exercise Education Related to Dietary Surveillance and Counseling Prescribed Diet Educ ation/Lifestyle Education Regarding Diet Related to Dietary Surveillance and Counseling Assessments Type Assessment Date assessment Encntr for general adult medical exam w/o abnormal findings Mental Status Date Cognitive Assessment Orientation - [place] ed to time, place, person, situation.
--- OUTSIDE RECORDS SUMMARY | 2025-02-14 15:23 | XMS_ITS | Clinical Summary ---
Author Organization [facility] Address [address] [place] [address] Care Team Providers Care Social Science Manager Name Role Phone Unavailable Primary Care Provider Unavailabl e Allergies No known active allergies Medications VITAMIN D PO Take 1,000 Int'l Units by mouth daily. Active LORazepam (ATIVAN) 1 MG Tablet Take 1 Tablet by mouth daily as needed for Anxiety or Sleep. 30 Tablet 5 1 Active atorvastatin (LIPITOR) 10 MG TabletIndications :Type 2 diabetes mellitus with other specified complication, without long-term current use of insulin Take 1 Tablet by mouth daily. 90 Tablet 1 Active losartan (COZAAR) 25 MG TabletIndications :Type 2 diabetes mellitus with other specified complication, without long-term current use of insulin,Essential hypertension Take 1 Tablet by mouth daily. 90 Tablet 1 1 Active Probiotic Product (PRO-BIOTIC BLEND PO) Take 1 Tablet by mouth daily. Active CRANBERRY PO Take 1 Tablet by mouth daily. Active glimepiride (AMARYL) 4 MG Tablet Take 1 Tablet by mouth every morning. 90 Tablet 1 Active fluconazole (DIFLUCAN) 200 MG TabletIndications :Yeast infection Take 1 tablet today and repeat dose in 3 days 2 Tablet 1 Active amLODIPine (NORVASC) 10 MG Tablet TAKE 1 TABLET BY MOUTH EVERY DAY 90 Tablet 1 Active sertraline (ZOLOFT) 50 MG TabletIndications :Generalized anxiety disorder,Other depression Take 1 Tablet by mouth daily. 90 Tablet 1 2 Active traZODone (DESYREL) 50 MG TabletIndications :Generalized anxiety disorder,Other depression Take 1 Tablet by mouth nightly. 90 Tablet 1 2 Active sertraline (ZOLOFT) 25 MG TabletIndications :Generalized anxiety disorder,Other depression Take 1 Tablet by mouth daily. 90 Tablet 1 2 Active metFORMIN (GLUCOPHAGE) 500 MG TabletIndications :Type 2 diabetes mellitus without complication, without long-term current use of insulin Take 1 Tablet by mouth 2 times daily (with meals). 180 Tablet 1 2 Active pseudoephedrine (Sudafed 12 Hour) 120 MG TABLET SR 12 HRIndications:Con gestion of upper respiratory tract Take 1 Tablet by mouth 2 times daily as needed for Congestion. 20 Tablet 2 Active Active Problems Problem Noted Date Diagnosed Date High blood pressure 02/16/2021 H/O renal calculi 12/27/2020 Class 3 severe obesity due t o excess calories with serious comorbidity and body mass index (BMI) of 50.0 to 59.9 in adult 09/26/2020 Type 2 diabetes mellitus 09/21/2020 Generalized anxiety disorder 09/21/2020 Severe recurrent major depre ssion without psychotic features 09/21/2020 Vitamin D deficiency 09/21/2020 Depression Resolved Problems Problem Noted Date Diagnosed Date Resolved Date Tachycardia 12/27/2020 12/29/2020 UTI (urinary tract infection) 12/27/2020 12/29/2020 LLQ abdominal pain 12/27/2020 Immunizations Immunization Administration Dates Next Due Covid-19, Mrna, Lnp-s, PF, 1 00 mcg/0.5 mL Dose (Moderna) 10/06/2020,09/08/2020 DTP-Hib 03/13/1996, 5,03/27/1995,01/02 Hepatitis A, Pediatric, Unsp ecified Formulation 10/25/2009,04/05/2009 Hepatitis B Vaccine, Pediatric/adolescent 06/19/1995,01/02/1995,1994 Human Papillomavirus Vaccine (HPV), quadrivalent 10/25/2009,06/28/2009,04/05/2009 Influenza Vaccine, Quadrivalent, PF 09/12/2020 MMR Vaccine 03/13/1996 Meningococcal C Conjugate Vaccine 04/05/2009 OPV 03/13/1996, 5,03/27/1995,01/02 Pneumococcal Vaccine Adult - 23 Valent TDAP Vaccine 04/05/2009 Varicella Vaccine Live 04/05/2009,06/28/2000 Family History Medical History Relation Name Comments Anxiety disorder Maternal Grandfather Anxiety disorder Mother Congestive Heart Failure Mother Kidney Cancer Mother Anxiety disorder Sister Autism Sister Relation Name Status Comments Maternal Grandfather Mother Sister Alive Social History Tobacco Use Types Packs/Day Years Used Date Smoking Tobacco: Never Smokeless Tobacco: Never Tobacco Cessation:Counseling Given: No Alcohol Use Standard Drinks/Week Comments Never 0 [...] Master's degree (e.g., MA, MS, Brett, MEd, JUMBO OPERATOR, CONCHIS) 09/12/2020 Sexually Active Control Partners Comments Yes None Male Comments No Sex and Gender Information Value Date Recorded Sex Assigned at Not on file Legal Sex Female 6:20 PM CDT Gender Identity Not on file Sexual Orientation Not on file Last Filed Vital Signs Vital Sign Reading Time Taken Comments Blood Pressure 124/88 02/16/2021 8:04 AM CDT Pulse 96 02/16/2021 8:04 AM CDT Temperature 36.3 C (97.4 F) 02/16/2021 8:04 AM CDT Respiratory Rate 16 02/16/2021 8:04 AM CDT Oxygen Saturation 97% 02/16/2021 8:04 AM CDT Inhaled Oxygen Concentration - - Weight 140.9 kg (310 lb 11.2 oz) 02/16/2021 8:04 AM CDT Height 161.3 cm (5' 3.5) 02/16/2021 8:04 AM CDT Body Mass Index 54.17 02/16/2021 8:04 AM CDT Plan of Treatment Health Maintenance Due Date Last Done Comments Diabetes: Eye Exam 1994 Diabetes: Foot Exam 1994 Hepatitis C Virus (HCV) Screening 1994 Pap Smear 2015 DTaP/Tdap/Td Immunization (6 - Td or Tdap) 04/05/2019 04/05/2009, 03/13/1996, 06/19/1995, Additional history exists Diabetes: Hemoglobin A1c 03/12/2021 09/12/2020 Diabetes: Nephropathy Screening 01/10/2022 01/10/2021, 01/05/2021, 01/02/2021, Additional history exists Pneumococcal Immunization Combined (2 of 2 - PCV) 01/10/2022 01/10/2021 SARS-COV-2 Immunization ( season) 2024 10/06/2020, 09/08/2020 Cervical Cancer Screening (CCS) 2024 HPV/Cotest 2024 Influenza Immunization (Season Ended) 2025 09/12/2020 Respiratory Syncytial Virus (RSV) Immunization (Adult) (1 - 1-dose 75+ series) 2069 Hepatitis B Immunization Completed 995, 01/02/1995, 1994 Human Papillomavirus (HPV) Immunization Completed 10/25/2009, 06/28/2009, 04/05/2009 Meningococcal Immunization (ACWY) Aged Out No longer eligible based on patient's age to complete this topic Rotavirus Immunization Aged Out No lo nger eligible based on patient's age to complete this topic Procedures Procedure Name Priority Date/Time Associated Diagnosis Comments CMP (COMPREHENSIVE METABOLIC PANEL) Routine 01/10/2021 4:18 PM CDT Type 2 diabetes mellitus with other specified complication, without long-term current use of insulin (HCC) HEMOGLOBIN A1C W/ ESTIMATED GLUCOSE Routine 09/12/2020 9:20 AM NOC ANALYST Type 2 diabetes mellitus without complication, without long-term current use of insulin (HCC) from Last 3 Months or Most Recently Relevant to Health Maintenance Results * (ABNORMAL) CMP (COMPREHENSIVE METABOLIC PANEL) (01/10/2021 4:18 PM CDT) SODIUM 133 133 - 144 mmol/L 01/10/2021 4:35 PM CDT [facility] POTASSIUM 3.8 3.5 - 5.1 mmol/L 01/10/2021 4:35 PM CDT [facility] CHLORIDE 100 98 - 107 mmol/L 01/10/2021 4:35 PM CDT [facility] CO2, VENOUS 24 21 - 31 mmol/L 01/10/2021 4:35 PM CDT [facility] ANION GAP 9.0 8.0 - 16.0 mmol/L 01/10/2021 4:35 PM CDT [facility] GLUCOSE 280(H) 70 - 99 mg/dL 01/10/2021 4:35 PM CDT [facility] BUN 18 7 - 25 mg/dL 01/10/2021 4:35 PM CDT [facility] CREATININE, BLOOD 0.66 0.50 - 1.20 mg/dL 01/10/2021 4:35 PM CDT [facility] BUN/CREATININE RATIO 27(H) 6 - 20 ratio 01/10/2021 4:35 PM CDT [facility] TOTAL PROTEIN 8.7 6.4 - 8.9 g/dL 01/10/2021 4:35 PM CDT [facility] ALBUMIN 4.5 3.5 - 5.7 g/dL 01/10/2021 4:35 PM CDT [facility] A/G RATIO 1.1 1.0 - 2.2 01/10/2021 4:35 PM CDT [facility] CALCIUM 9.7 8.6 - 10.3 mg/dL 01/10/2021 4:35 PM CDT [facility] T BILI 0.3 0.2 - 0.8 mg/dL 01/10/2021 4:35 PM CDT [facility] SGOT (AST) 50(H) 13 - 39 U/L 01/10/2021 4:35 PM CDT [facility] SGPT (ALT) 56(H) 7 - 52 U/L 01/10/2021 4:35 PM CDT [facility] ALKALINE PHOSPHATASE 115(H) 34 - 104 U/L 01/10/2021 4:35 PM CDT [facility] GFR, EST. NONAFRICAN >60 >=60 01/10/2021 4:35 PM CDT [facility] GFR, EST. >60 >=60 01/10/2021 4:35 PM CDT [facility] Comment: Creatinine Clearance is the preferred criteria for selecting drug dose adjustments in renally impaired patients. The GFR is provided as additional pertinent clinical information. GFR is reported in mL/min/1.73 sq m. IS THE PATIENT REQUIRED TO BE FASTING? No 01/10/2021 4:35 PM CDT [facility] Blood Venipuncture / Unknown 01/10/2021 4:18 PM CDT 01/10/2021 4:18 PM CDT us Amy Huang PAC CHEMISTRY ORDERABLES Final Result [facility] [place] [address], [place] [phone] * (ABNORMAL) HEMOGLOBIN A1C W/ ESTIMATED GLUCOSE (09/12/2020 9:20 AM NOC ANALYST) HGB-A1C 9.4(H) 4.0 - 6.0 % 09/12/2020 5:07 PM NOC ANALYST [facility] Est Average Glucose 223.1 mg/dL 09/12/2020 5:07 PM NOC ANALYST [facility] Blood Venipuncture / Unknown 09/12/2020 9:20 AM NOC ANALYST 09/12/2020 9:20 AM NOC ANALYST Narrative [facility] - 09/12/2020 5:07 PM NOC ANALYST Specimens containing greater than 5% of Hemoglobin F may result in lower than expected % HbA1C results. us Amy Huang PAC CHEMISTRY ORDERABLES Final Result [facility] [address] [place] [address], [place] from Last 3 Months or Most Recently Relevant to Health Maintenance Insurance [place] [address] [address] Advance Directives * Full Code (Latest Code Status on File) Date Activated Date Inactivated Comments 12/27/2020 12:59 PM 12/29/2020 1:49 PM CPR-Full Tr eatment: FULL ARREST: Attempt Resuscitation/CPR wit intubation and mechanical ventilation. PRE-ARREST: Use entire range of life support measures to stabilize the patient.
--- OUTSIDE RECORDS SUMMARY | 2025-02-14 15:23 | XMS_ITS | Encounter Summary ---
Author Organization [facility] Address [address] [place] [address] Phone Care Team Providers Care Firearms Specialist Name Role Phone Amy Rinaldi Primary Care Provide r Reason for Visit * Reason Comments Medication Refill Encounter Details Date Type Department Care Team (Late st Contact Info) Description 06/26/2021 Refill [facility] - [place] [address] [place] [address] Amy Rinaldi, PAC [address] [place] [address] Medication Refill Social History Tobacco [...] Master's degree (e.g., MA, MS, Brett, MEd, POLICE OFFICER, CONCHIS) 09/12/2020 Sexually Active Control Partners Comments [...] have Coronavirus / COVID-19? No / Unsure 06/12/2021 9:41 AM CDT documented as of this encounter Miscellaneous Notes * Telephone Encounter - Jaquelin Ashley RN - 06/26/2021 8:03 AM CDT Per nursing clinical judgement, provider to review and approve the medication(s) order(s) if appropriate. Requested Prescriptions Pending Prescriptions Disp Refills amLODIPine (NORVASC) 10 MG Tablet [Pharmacy Med Name: AMLODIPINE BESYLATE 10 MG TAB] 90 Tablet 0 Sig: TAKE 1 TABLET BY MOUTH EVERY DAY Calcium-Channel Blockers Protocol Passed - 06/26/2021 12:29 AM Passed - BP on record in the past year Clinician-entered: BP Readings from Last 3 Encounters: 02/16/21 124/88 02/01/21 128/84 01/10/21 (!) 146/94 Patient-entered: No data recorded Passed - Visit with relevant provider in past 12 months or upcoming 90 days Recent Visits Date Type Provider Dept 06/15/21 Telemedicine Amy Rinaldi, PAC [facility] 05/29/21 Telemedicine Amy Rinaldi, PAC [facility] 05/09/21 Telemedicine Amy Rinaldi, PAC [facility] 04/28/21 Telemedicine Amy Rinaldi, PAC [facility] 02/16/21 Office Visit Amy Rinaldi, PAC [facility] 01/10/21 Office Visit Amy Rinaldi, PAC [facility] 09/26/20 Office Visit Amy Rinaldi, PAC [facility] 09/12/20 Office Visit Amy Rinaldi, PAC [facility] Showing recent visits within past 365 days and meeting all other requirements Future Appointments No visits were found meeting these conditions. Showing future appointments within next 90 days and meeting all other requirements documented in this encounter Plan of Treatment Not on file documented as of this encounter Visit Diagnoses Not on filedocumented in this encounter Additional Health Concerns Assessment Noted Time PHQ-9 Depression Total Score: 0 12/28/19 12:01 PM CDT documented as of this encounter Care Teams Firearms Specialist Relationship Specialty Start Date End Date Amy Rinaldi, PAC PCP - General Physician Linoleum Tile Layer 09/12/20 08/19/23 documented as of this encounter
--- OUTSIDE RECORDS SUMMARY | 2025-02-14 15:23 | XMS_ITS | Referral Summary ---
Author Organization [address] Address [address] [place] [address] Care Team Providers Care Parks And Recreation Manager Name Role Phone Unknown, Notinfile Primary Care Provider Unavail able Encounters Date Type Department Care Team Description 02/11/2025 Results Follow-Up [facility] Convenient Care at [address] [address] NP XR Ankle Left 3+ Vw, XR Tibia Fibula Left 2 Vw 02/10/2025 3:35 PM CDT Ancillary Procedure [facility] Imaging at [address] [address] Injury of calf 02/10/2025 3:30 PM CDT Ancillary Procedure [facility] Medical [facility] Imaging at [address] [address] Injury of calf 02/10/2025 3:15 PM CDT Office Visit [facility] Medical [facility] Convenient Care at [address] [address] Jolynn Rose PA Injury of calf (Primary Dx) from Last 3 Months Allergies No known active allergies Medications Mounjaro [...] Active Active Problems No known active problems Social History Tobacco Use Types Packs/Day Years Used Date Smoking Tobacco: Never Assessed Comments Unknown Sex and Gender Information Value Date Recorded Sex Assigned at Not on file Legal Sex Female 7:37 PM BRAND MANAGER Gender Identity Not on file Sexual Orientation [...] Mass Index - - Plan of Treatment Not on file Procedures Procedure Name Priority Date/Time Associated Diagnosis [...] by Andre Hidalgo M.D. T: Report ID: [id number] Reading Location: [id number] Procedure Note Andre Hidalgo, DO - 02/10/2025 [...] by Andre Hidalgo M.D. T: Report ID: [id number] Reading Location: [id number] Jolynn GUILLORY IMG XR PROCEDURES Final Result [...] by Andre Hidalgo M.D. T: Report ID: [id number] Reading Location: [id number] Procedure Note Andre Hidalgo, DO - 02/10/2025 [...] by Andre Hidalgo M.D. T: Report ID: [id number] Reading Location: [place] [address] Jolynn GUILLORY IMG XR PROCEDURES Final Result from Last 3 Months Insurance [employer] [facility] Care Teams Parks And Recreation Manager Relationship Specialty Start Date End Date Unknown, Notinfile PCP - General 02/10/25
[2025-02-14 15:41] VITALS: BP 153/92; PULSE 100; RESP 15; TEMP 36.7; O2SAT 99
--- OUTSIDE RECORDS SUMMARY | 2025-02-14 15:59 | XMS_ITS | Encounter Summary ---
Author Organization [facility] Address [address] [place] [address] Phone Care Team Providers Care Casino Supervisor Name Role Phone Amy Rinaldi Primary Care Provide r Reason for Visit * Reason Comments Medication Refill Encounter Details Date Type Department Care Team (Late st Contact Info) Description 03/27/[address] [facility] [address] [place] [address] Amy Rinaldi, PAC [address] [place] [phone] Medication Refill Social History Tobacco Use Types [...] Master's degree (e.g., MA, MS, Brett, MEd, ENFORCEMENT MANAGER, CONCHIS) 09/12/2020 Sexually Active Control Partners Comments [...] documented as of this encounter Care Teams Casino Supervisor Relationship Specialty Start Date End Date Amy Rinaldi, BEBE PCP - General Physician Software Trainer 09/12/20 08/19/23 documented as of this encounter
--- OUTSIDE RECORDS SUMMARY | 2025-02-14 16:00 | XMS_ITS | Encounter Summary ---
Author Organization [facility] Address [address] [place] [address] Phone Care Team Providers Care Data Services Developer Name Role Phone Amy Rinaldi Primary Care Provide r Reason for Visit * Reason Onset Date Comments Urinary Frequency 04/28/2021 RE: EXTERNAL U ROLOGY REFERRAL Alex is being referred to Urology in [facility] in [place], [place] other specialist in patient's insurance network Encounter Details Date Type Department Care Team (Late st Contact Info) Description 06/08/2021 Telephone [facility] - Primary Care - [place] [address] [place] [address] Amy Rinaldi, PAC [address] [place] [address] Urinary Frequency (RE: EXTERNAL UROLOGY REFERRAL Alex is being referred to Urology in [facility] in [place], [place] other specialist in patient's insurance network [...] Master's degree (e.g., MA, MS, Brett, MEd, BENEFITS SPECIALIST RECRUITER, CONCHIS) 09/12/2020 Sexually Active Control Partners Comments [...] Alex is being referred to Urology in [facility] in [place], [place] other specialist in patient's insurance network for Recurrent UTI x 4 this year, 1 episode of with sepsis Multiple attempts have been made by referral center to reach the patient and there has been no response back. No further follow up will be attempted. Thank you, [facility] [address] [place] [address] or documented in this encounter Plan of Treatment Not on file documented as of this encounter Visit Diagnoses Not on filedocumented in this encounter Additional Health Concerns Assessment Noted Time PHQ-9 Depression Total Score: 0 12/28/19 12:01 PM CDT documented as of this encounter Care Teams Data Services Developer Relationship Specialty Start Date End Date Amy Rinaldi, PAC PCP - General Physician Rn Military 09/12/20 08/19/23 documented as of this encounter
--- OUTSIDE RECORDS SUMMARY | 2025-02-14 16:00 | XMS_ITS | Encounter Summary ---
Author Organization [facility] Address [address] [place] [address] Care Team Providers Care Dredge Mechanic Name Role Phone Unknown, Notinfile Primary Care Provider Unavail able Encounter Details Date Type Department Care Team (Late st Contact Info) Description 02/11/2025 Results Follow-Up [facility] Convenient Care at [address] [address] NP [address] [facility] [address] [place] [address] XR Ankle Left 3+ Vw, XR Tibia Fibula Left 2 Vw Social History Tobacco Use Types Packs/Day Years Used Date Smoking Tobacco: Never Assessed Comments Unknown Sex and Gender Information Value Date Recorded Sex Assigned at Not on file Legal Sex Female 7:37 PM FANCY NEEDLEWORKER Gender Identity Not on file Sexual Orientation Not on file documented as of this encounter Miscellaneous Notes * Result Encounter Note - Carmen Akbar LPN - 02/11/2025 6:27 PM CDT LVM for pt to return call to clinic to notify them of labs results. Pt has viewed results in [facility] * Result Encounter Note - Carmen Akbar LPN - 02/11/2025 9:04 AM CDT Attempted to contact pt regarding xray results. Phone number was not working. documented in this encounter Plan of Treatment Not on file documented as of this encounter Visit Diagnoses Not on filedocumented in this encounter Care Teams Dredge Mechanic Relationship Specialty Start Date End Date Unknown, Notinfile PCP - General 02/10/25 documented as of this encounter
--- OUTSIDE RECORDS SUMMARY | 2025-02-14 16:00 | XMS_ITS | Clinical Summary ---
Author Organization [facility] Address [address] [place] [address] Care Team Providers Care Sales Office Manager Name Role Phone Unavailable Primary Care [...] Master's degree (e.g., MA, MS, Brett, MEd, DRIER, CONCHIS) 09/12/2020 Sexually Active Control Partners Comments [...] W/ ESTIMATED GLUCOSE Routine 09/12/2020 9:20 AM HEAT TREAT SUPERVISOR Type 2 diabetes mellitus without complication, without long-term current use of insulin (HCC) from Last 3 Months or Most Recently Relevant to Health Maintenance Results * (ABNORMAL) CMP (COMPREHENSIVE METABOLIC PANEL) (01/10/2021 4:18 PM CDT) SODIUM 133 133 - 144 mmol/L 01/10/2021 4:35 PM CDT [facility] POTASSIUM 3.8 3.5 - 5.1 mmol/L 01/10/2021 4:35 PM CDT [facility] CHLORIDE 100 98 - 107 mmol/L 01/10/2021 4:35 PM CDT [facility] CO2, VENOUS 24 21 - 31 mmol/L 01/10/2021 4:35 PM CDT [facility] ANION GAP 9.0 8.0 - 16.0 mmol/L 01/10/2021 4:35 PM CDT [facility] GLUCOSE 280(H) 70 - 99 mg/dL 01/10/2021 4:35 PM CDT [facility] BUN 18 7 - 25 mg/dL 01/10/2021 4:35 PM CDT [facility] CREATININE, BLOOD 0.66 0.50 - 1.20 mg/dL 01/10/2021 4:35 PM CDT [facility] BUN/CREATININE RATIO 27(H) 6 - 20 ratio 01/10/2021 4:35 PM CDT [facility] TOTAL PROTEIN 8.7 6.4 - 8.9 g/dL 01/10/2021 4:35 PM CDT [facility] ALBUMIN 4.5 3.5 - 5.7 g/dL 01/10/2021 4:35 PM CDT [facility] A/G RATIO 1.1 1.0 - 2.2 01/10/2021 4:35 PM CDT [facility] CALCIUM 9.7 8.6 - 10.3 mg/dL 01/10/2021 4:35 PM CDT [facility] T BILI 0.3 0.2 - 0.8 mg/dL 01/10/2021 4:35 PM CDT [facility] SGOT (AST) 50(H) 13 - 39 U/L 01/10/2021 4:35 PM CDT [facility] SGPT (ALT) 56(H) 7 - 52 U/L 01/10/2021 4:35 PM CDT [facility] ALKALINE PHOSPHATASE 115(H) 34 - 104 U/L 01/10/2021 4:35 PM CDT [facility] GFR, EST. NONAFRICAN >60 >=60 01/10/2021 4:35 PM CDT [facility] GFR, EST. >60 >=60 01/10/2021 4:35 PM CDT [facility] Comment: Creatinine Clearance is the preferred criteria for selecting drug dose adjustments in renally impaired patients. The GFR is provided as additional pertinent clinical information. GFR is reported in mL/min/1.73 sq m. IS THE PATIENT REQUIRED TO BE FASTING? No 01/10/2021 4:35 PM CDT [facility] Blood Venipuncture / Unknown 01/10/2021 4:18 PM CDT 01/10/2021 4:18 PM CDT us Amy Huang PAC CHEMISTRY ORDERABLES Final Result [facility] [place] [place] [address], [place] [phone] * (ABNORMAL) HEMOGLOBIN A1C W/ ESTIMATED GLUCOSE (09/12/2020 9:20 AM HEAT TREAT SUPERVISOR) HGB-A1C 9.4(H) 4.0 - 6.0 % 09/12/2020 5:07 PM HEAT TREAT SUPERVISOR [facility] Est Average Glucose 223.1 mg/dL 09/12/2020 5:07 PM HEAT TREAT SUPERVISOR [facility] Blood Venipuncture / Unknown 09/12/2020 9:20 AM HEAT TREAT SUPERVISOR 09/12/2020 9:20 AM HEAT TREAT SUPERVISOR Narrative [facility] - 09/12/2020 5:07 PM HEAT TREAT SUPERVISOR Specimens containing greater than 5% of Hemoglobin F may result in lower than expected % HbA1C results. us Amy Huang PAC CHEMISTRY ORDERABLES Final Result [facility] [address] [place] [address], [place] from Last 3 Months or Most Recently Relevant to Health Maintenance Insurance [place] [place] [address] Advance Directives * Full Code (Latest Code Status on File) Date Activated Date Inactivated Comments 12/27/2020 12:59 PM 12/29/2020 1:49 PM CPR-Full Tr eatment: FULL ARREST: Attempt Resuscitation/CPR wit intubation and mechanical ventilation. PRE-ARREST: Use entire range of life support measures to stabilize the patient.
--- OUTSIDE RECORDS SUMMARY | 2025-02-14 16:00 | XMS_ITS | Clinical Summary ---
Author Organization [facility] [place] [address] Address [address] [place] [address] Care Team Providers Care Dental Officer Name Role Phone Unknown, Notinfile Primary Care [...] Department Care Team Description 02/11/2025 Results Follow-Up [facility]ient Care at [address] [address] NP XR Ankle Left 3+ Vw, XR Tibia Fibula Left 2 Vw 02/10/2025 3:35 PM CDT Ancillary Procedure [facility] Imaging at [address] [address] Injury of calf 02/10/2025 3:30 PM CDT Ancillary Procedure [facility] Imaging at [address] [address] Injury of calf 02/10/2025 3:15 PM CDT Office Visit [facility] at [address] [phone] Jolynn Rose PA Injury of calf (Primary Dx) from Last 3 Months Social History Tobacco Use Types Packs/Day Years Used Date Smoking Tobacco: Never Assessed Comments Unknown Sex and Gender Information Value Date Recorded Sex Assigned at Not on file Legal Sex Female 7:37 PM JAVASCRIPT FRONT END DEVELOPER Gender Identity Not on file Sexual Orientation [...] by Andre Hidalgo M.D. T: Report ID: [id number] Reading Location: [id number] Procedure Note Andre Hidalgo, DO - 02/10/2025 [...] by Andre Hidalgo M.D. T: Report ID: [id number] Reading Location: [place] [address] Jolynn GUILLORY IMG XR PROCEDURES Final Result [...] by Andre Hidalgo M.D. T: Report ID: [id number] Reading Location: [id number] Procedure Note Andre Hidalgo, DO - 02/10/2025 [...] by Andre Hidalgo M.D. T: Report ID: [id number] Reading Location: [id number] Jolynn GUILLORY IMG XR PROCEDURES Final Result from Last 3 Months Insurance [facility] Care Teams Dental Officer Relationship Specialty Start Date End Date Unknown, Notinfile PCP - General 02/10/25
--- OUTSIDE RECORDS SUMMARY | 2025-02-14 16:00 | XMS_ITS | Continuity of Care Document ---
Author Organization [facility] Address [address] [place] [address] [place] [address] Phone Care Team Providers Care Vamp Creaser Name Role Phone Hans Alatorre MD Unavailable Unavailable Allergies, Adverse Reactions, Alerts Substance Reaction Status Criticality No Known Allergies Active No Inform ation Medications Medication Instructions Dosage Effective Dates (start - stop) Status Comments spironolactone 100 mg tablet take 1 tablet by oral route every day 100 MG - Active Keflex 500 mg capsule take 1 capsule by oral route every 12 hours - Active metformin 1,000 mg tablet take 1 tablet by oral route 2 times every day with morning and evening meals 1000 MG - Active Amaryl 2 mg tablet take 1 tablet by ora l route every day - Active Procedures Procedure Date PREV VISIT, [...] on Encounter PREV VISIT, EST, AGE 18-39 [facility], [address], [place], [place], [address], [place] tel:[phone] [facility] Medicine Physical (chief complaint) Encntr for general adult medical exam w/o abnormal findings 9 Landry Maxwell. [address], [place], [place], [address] , [place]. tel:[phone] Referring Provider: Enriqueta Cervantes [address], [place], [place], [address]. tel:[phone] OFFICE/OUTPA TIENT VISIT, [facility], [address], [place], [place], [address], [place] tel:[phone] [facility] DM (chief complaint) fatty liver1 (chief complaint) obesity1 (chief complaint) Acne1 (chief complaint) Type 2 diabetes mellitus without complicationsFatty liverBody mass index (BMI) 50-59.9 , adultAcne 9 Landry Maxwell. [address], [place], [place], [address] , [place]. tel:[phone] Referring Provider: Enriqueta Cervantes [address], [place], [place], [address]. tel:[phone] OFFICE/OUTPA TIENT VISIT, EST [facility], [address], [place], [place], [address], [place] tel:[phone] [facility] DM (chief complaint) Body mass index (BMI) 50-59.9 , adultType 2 diabetes mellitus without complications 9 Landry Maxwell. [address], [place], [place], [address] , [place]. [phone] Referring Provider: Enriqueta Cervantes [address], [place], [place], [address]. tel:[phone] OFFICE/OUTPA TIENT VISIT, [facility], [address], [place], [place], [address], [place] tel:[phone] [facility] Medicine DM (chief complaint) fatty liver1 (chief complaint) HLP (chief complaint) Body mass index (BMI) 50-59.9 , adultType 2 diabetes mellitus without complicationsHyperl ipidemiaFatty liver 9 Landry Garcia [address], [place], [place], [address] , [place]. tel:[phone] Referring Provider: Enriqueta Cervantes [address], [place], [place], [address]. tel:[phone] PREV VISIT, EST, AGE 18-39 [facility], [address], [place], [place], [address], [place] tel:[phone] [facility] Physical (chief complaint) Encntr for general adult medical exam w/o abnormal findings 8 Landry Garcia [address], [place], [place], [address] , [place]. tel:[phone] Referring Provider: Enriqueta Cervantes [address], [place], [place], [address]. tel:[phone] OFFICE/OUTPA TIENT VISIT, EST [facility], [address], [place], [place], [address], [place] tel:[phone] [facility] Medicine Acne1 (chief complaint) obeisty1 (chief complaint) metabolic1 (chief complaint) Body mass index (BMI) 50-59.9 , adultFatty liverMetabolic syndrome 8 Landry Garcia [address], [place], [place], [address] , [place]. tel:[phone] Referring Provider: Enriqueta Cervantes [address], [place], [place], [address]. tel:[phone] OFFICE/OUTPA TIENT VISIT, EST [facility], [address], [place], [address], [place] tel:[phone] [facility] Medicine globulin (chief complaint) vitamin d (chief complaint) PreDM (chief complaint) weight loss1 (chief complaint) Abnormality of globulinAdult BMI of 50.0-59.9Vitamin D deficiency, unspecifiedMetaboli c syndrome Landry Garcia [address], [address], [place], [place], [address] , [place]. [phone] Referring Provider: Enriqueta Cervantes [address], [place], [place], [address]. tel:[phone] PREV VISIT, EST, AGE 18-39 [facility], [address], [place], [place], [address], [place] [phone] [facility] Physical (chief complaint) Encntr for general adult medical exam w/o abnormal findings Landry Garcia [address], [place], [place], [address] , [place]. [phone] Referring Provider: Enriqueta Cervantes [address], [place], [place], [address]. tel:[phone] OFFICE/OUTPA TIENT VISIT, EST [facility], [address], [place], [address], [place] tel:[phone] [facility] flank pain1 (chief complaint) rash1 (chief complaint) HTN (chief complaint) Abdominal painRashEssential (primary) hypertension Landry Garcia [address], [place], [place], [address] , [place]. tel:[phone] OFFICE/OUTPA TIENT VISIT, EST [facility], [address], [place], [place], [address], [place] tel:[phone] [facility] DM (chief complaint) anxiety1 (chief complaint) renal stone1 (chief complaint) Type 2 diabetes mellitus without complicationsDepres sionHematuriaBody mass index (BMI) 50-59.9 , adult 7 Landry Garcia [address], [place], [place], [address] , [place]. tel:[phone] Referring Provider: Enriqueta Cervantes [address], [place], [place], [address]. tel:[phone] OFFICE/OUTPA TIENT VISIT, [facility], [address], [place], [place], [address], [place] tel:[phone] [facility] DM (chief complaint) LFT (chief complaint) obesity (chief complaint) anxiety1 (chief complaint) Fatty liverType 2 diabetes mellitus without complicationsDepres sionAdult BMI of 50.0-59.9 6 Landry Maxwell. [address], [place], [address] , [place]. [phone] Referring Provider: Enriqueta Cervantes [address], [place], [place], [address]. tel:[phone] OFFICE/OUTPA TIENT VISIT, [facility], [address], [place], [address], [place] tel:[phone] [facility] DM (chief complaint) fatty liver1 (chief complaint) acathansis nigrans (chief complaint) Type 2 diabetes mellitus without complicationsFatty liverAcanthosis nigricans 6 Landry Maxwell. [address], [place], [place], [address] , [place]. [phone] Referring Provider: Enriqueta Cervantes [address], [place], [place], [address]. tel:[phone] OFFICE/OUTPA TIENT VISIT, [facility], [address], [place], [place], [address], [place] tel:[phone] [facility] DM (chief complaint) LFT (chief complaint) skin (chief complaint) Type 2 diabetes mellitus without complicationsAcanth osis nigricansLiver disease, unspecifiedBody mass index (BMI) 50-59.9 , adult 6 Landry Maxwell. [address], [place], [place], [address] , [place]. tel:[phone] Referring Provider: Enriqueta Cervantes [address], [place], [place], [address]. tel:[phone] OFFICE/OUTPA TIENT VISIT, EST [facility], [address], [place], [place], [address], [place] tel:[phone] [facility] DM (chief complaint) LFT (chief complaint) vitamin D (chief complaint) Rash1 (chief complaint) Type 2 diabetes mellitus without complicationsLiver diseaseAcanthosis nigricans 6 Landry Maxwell. [address], [place], [place], [address] , [place]. tel:[phone] Referring Provider: Enriqueta Cervantes [facility] [address], [place], [place], [address]. tel:[phone] PREV VISIT, NEW, AGE 18-39 [facility], [address], [place], [place], [address], [place] tel:[phone] [facility] Physical (chief complaint) Encounter for general adult medical exam w abnormal findingsHidradeniti s suppurativaHypergly cemiaAcanthosis nigricans 6 Landry Maxwell. [address], [place], [place], [address] , [place]. [phone] Referring Provider: Enriqueta Cervantes [facility] A, [place], [place], [address]. 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
[address] [place], [phone] Ordered: Referrals: Zarina Mann. Evaluate and treat ordered Referral Referred To: Carlos Enrique Godfrey 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 Pt denies any numbness. DM Pt has DM Pt sta jeannie that she did not take metformin for two months recently. Pt denies any polyuria, polydipsia. her A1c was 7.4 recently fatty liver1 Pt has fatty shayne er Pt has mildly high LFT. Pt denies any abdominal pain HLP Pt has high tG. Pt is trying to eat healthy Physical Pt needs annual physical. Pt has insulin resistance and she is on metformin. Pt sees EMBEDDED ENGINEER and she was told that she has PCOS and she told me she had normal pelvic ultrasound by EMBEDDED ENGINEER recently. Pt has regular period now. Pt also sees dermatology and she is on spironolactone for acne. Pt told me her T level was ok recently by dermatology. Pt still has hard time losing weight. Pt denies any other complaints Acne1 Pt has acne and acanthosis nigrans. Pt is on spironolactone now by dermatology. Pt states that it did help with her acnes. obeisty1 Pt is obese. Pt wants to try to lose weight. Pt failed diet and exercise. metabolic1 Pt has metabolic syndrome. Pt did have insulin resistance. Pt is taking metformin and her A1c has been normal. Pt denies any polyuria polydpisia globulin Pt has mild high globulin on her lab. Pt denies any fever or infection vitamin d Pt has low vitam in D on lab PreDM Pt has metabolic syndrome. her A1c is normal now with metofrmin and also diet ane exercise. Pt takes spironolactone for hidradenitis and doing ok Pt sees dermatology weight loss1 Pt has been diet and exerciseing and intentionally losing weight. Pt denies any GI issue. Physical Pt needs annual physical. Pt has [...] Pt denies any chest apin or headache anxiety1 Pt has chronic a nxiety and depression Pt has not been taking effexor or prozac Pt states that her mood is better and she dose not need med anymore renal stone1 Pt recenlty went to ER [...] has some loose stool sometimes with metfomrin DM Pt has DM. Pt ta kes metformin. Pt has been watching her diet and food intake. Her A1c is much much better. Pt states that her BG is around 100. Pt feels well. LFT Pt has fatty shayne er Her LFT is ok NO hepatitis obesity Additional infor jannette: Pt is obese. Pt has not been able to lose weight. Pt is trying low fat and low carb diet. anxiety1 Pt has chronic a nxiety and depression. Pt feels irritable. Pt is on prozac but not working. Pt denies any suicidal or homicidal thought Pt denies any cyring spells fatty liver1 Pt has fatty shayne er Pt is working on low fat and low carb diet. Pt denies any abd pain or any jaundice acathansis nigrans Pt has acanth asis nigrans. Pt takes doxycycline but she is off now since she has fatty liver Pt also has headache with doxy and also nonbloody diarrhea. Pt is working with dermatology to try different abx. DM Pt has DM. Pt de jesus s been trying diet and exzercise and exercising daily. Her BG is around 100 on metformin only. Pt denies any numbness DM Pt has DM. Pt st arted metformin last month. Pt states that her BG is around 130s. Pt denies any polyuria, polydipsia. LFT Pt has mildly hi gh LFT. Pt has not done ultrasound yet. skin Pt has acanthasi s nigrans and also hiadradenitis. Pt just seen dermatology recently and was given cream and body wash and abx. Pt states that her skin rash is getting better. DM Pt has DM. Pt de nies any polyuria, polydipsia Pt denies any numbness LFT Pt has mildly el evation of LFT. Pt denies any abd pain vitamin D Pt has low D. Pt denies any history of fracture Rash1 Pt has acathasis nigrans. Pt has appointment with dermatology in 7 days. 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 Related to En cntr for general adult medical exam w/o abnormal findings Special diet education Related t o Body mass index (BMI) 50-59.9, adult Special diet education Related t o Body mass index (BMI) 50-59.9 , adult Increase physical activity Relat ed to Fatty liver Weight management Related to Fat ty liver Weight management Related to Abn ormality of globulin Prescribed Activity and Exercise Education Related to [...] Mental Status Date Cognitive Assessment Orientation - [place] ed to time, place, person, situation.
--- OUTSIDE RECORDS SUMMARY | 2025-02-14 16:00 | XMS_ITS | Encounter Summary ---
Author Organization [facility] Address [address] [place] [address] Phone Care Team Providers Care Admission Nurse Coordinator Name Role Phone Amy Rinaldi Primary Care Provide r Reason for Visit * Reason Comments Medication Refill Encounter Details Date Type Department Care Team (Late st Contact Info) Description 06/26/2021 Refill [facility] - [place] [address] [place] [address] Amy Rinaldi, PAC [address] [place] [address] Medication Refill Social History Tobacco [...] Master's degree (e.g., MA, MS, Brett, MEd, LEATHER WORKER, [employer]) 09/12/2020 Sexually Active Control Partners Comments [...] Dept 06/15/21 Telemedicine Amy Rinaldi, PAC [facility] 05/29/21 Telemedicine Amy Rinaldi, PAC [facility] 05/09/21 Telemedicine Amy Rinaldi, PAC [facility] 04/28/21 Telemedicine Amy Rinaldi, PAC [facility] 02/16/21 Office Visit Amy Rinaldi, PAC [facility] 01/10/21 Office Visit Amy Rinaldi, PAC [facility] 09/26/20 Office Visit Amy Rinaldi, PAC [facility] 09/12/20 Office Visit Amy Rinaldi, PAC [facility] [...] documented as of this encounter Care Teams Admission Nurse Coordinator Relationship Specialty Start Date End Date Amy Rinaldi, PAC PCP - General Physician Educational/Development Assistant 09/12/20 08/19/23 documented as of this encounter
--- OUTSIDE RECORDS SUMMARY | 2025-02-14 16:00 | XMS_ITS | Clinical Summary ---
Author Organization [facility] Address [address] [place] [address] Care Team Providers Care Right Of Way Man Name Role Phone Hans Alatorre MD Primary Care Provider [phone] Source Comments [facility] Affiliates and Associated Physician Practices is amultiple site organization consisting of ambulatory clinics and hospital sitesin [place], [place], [place] and [place]. This disclosure is being madepursuant to the Care Everywhere program and may not contain all information available regarding this patient. 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
--- OUTSIDE RECORDS SUMMARY | 2025-02-14 16:00 | XMS_ITS | Encounter Summary ---
Author Organization [facility] Address [address] [place] [address] Phone Care Team Providers Care Circuit Court Judge Name Role Phone Amy Rinaldi Primary Care Provide r Reason for Visit * Reason Comments Medication Refill Encounter Details Date Type Department Care Team (Late st Contact Info) Description 02/01/2021 Refill [facility] - [facility] - [place] [address] [place] [address] Amy Rinaldi, PAC [address] [place] [address] Medication Refill Social History Tobacco [...] Master's degree (e.g., MA, MS, Brett, MEd, SUPERVISOR RIDES, [employer]) 09/12/2020 Sexually Active Control Partners Comments [...] documented as of this encounter Care Teams Circuit Court Judge Relationship Specialty Start Date End Date Amy Rinaldi, BEBE PCP - General Physician Nursing Home Director 09/12/20 08/19/23 documented as of this encounter
--- OUTSIDE RECORDS SUMMARY | 2025-02-14 16:00 | XMS_ITS | Referral Summary ---
Author Organization [address] Address [address] [place] [address] Care Team Providers Care Platform Supervisor Name Role Phone Unknown, Notinfile Primary Care Provider Unavail able Encounters Date Type Department Care Team Description 02/11/2025 Results Follow-Up [facility] Convenient Care at [address] [address] NP XR Ankle Left 3+ Vw, XR Tibia Fibula Left 2 Vw 02/10/2025 3:35 PM CDT Ancillary Procedure [facility] Imaging at [address] [address] Injury of calf 02/10/2025 3:30 PM CDT Ancillary Procedure [facility] Medical [facility] at [address] [address] Injury of calf 02/10/2025 3:15 PM CDT Office Visit [facility] at [address] [address] Jolynn Rose PA Injury of [...] on file Legal 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 T: Report ID: [id number] Reading Location: [id number] Procedure Note Andre Hidalgo, DO - 02/10/2025 [...] by Andre Hidalgo M.D. T: Report ID: [id number] Reading Location: [id number] J[facility]ORY IMG XR PROCEDURES Final Result [...] by Andre Hidalgo M.D. T: Report ID: [id number] Reading Location: [id number] Procedure Note Andre Hidalgo, DO - 02/10/2025 [...] by Andre Hidalgo M.D. T: Report ID: [id number] Reading Location: [place] [address] Jolynn GUILLORY IMG XR PROCEDURES Final Result from Last 3 Months Insurance [employer] [facility] Care Teams Platform Supervisor Relationship Specialty Start Date End Date Unknown, Notinfile PCP - General 02/10/25
--- NOTE | 2025-02-14 17:10 | ED_ITS ---
HPI - Extremity Injury (Lower) General Chief Complaint: Extremity Injury, Lower Stated Complaint: fall x8 days ago, bruise to L. calf Time Seen by Provider: 02/14/25 15:52 History of Present Illness HPI Narrative: 29-year-old female with history of type 2 diabetes and hypertension presents to the emergency department for right calf pain and swelling for the past 8 days. Patient states 8 days ago she tripped over a curb and felt her left knee pop and hyperextend, then she felt a pop in her calf. She went to [facility] urgent care and had x-rays of her tib-fib and ankle obtained which were unremarkable. She has the reports on her My chart justina which she showed me. She then followed up with her PCP the following day and had orders placed for an outpatient venous duplex an MRI given pain and swelling. She was also given orthopedic referral. The patient states she is planning to schedule these appointments, however today woke up in the pain and swelling were much worse so she came to the ED. She states the pain is mostly over her calf and describes it as a tight sensation, however today it felt ?knife-like?. She notes that the bruising is starting to extend distally over her medial ankle. She denies any pain in her knee or behind her knee. She denies any numbness. She is not on anticoagulants. Related Data Allergies Allergy/AdvReac Type Severity Reaction Status Date / Time doxycycline Allergy Severe Blurry Verified 02/14/25 15:22 Vision Review of Systems 2 Review of Systems: All systems reviewed & are unremarkable except as noted in HPI and below PMFSH Past Medical History Medical History Hydradenitis UTI (urinary tract infection) Diabetes type 2, controlled Hypertension Anxiety and depression Surgical History Surgical History History of tonsillectomy and adenoidectomy Family History Family History Grandparent Cancer breast and small intestine Hypertension Diabetes mellitus Heart disease Mother Heart disease Diabetes mellitus Hypertension Depression Anxiety COPD (chronic obstructive pulmonary disease) Sibling Diabetes mellitus Social History Social History Social History: Caffeine-coffee/tea 1 cup daily Smoking status: Never smoker Alcohol intake: current Alcohol use details: wine/wine cooler once a month 1-2 glasses Substance use: never Substance use type: does not use Lack of Transportation: No Lack of Food: Never True Current Housing: I Have Housing Concerned About Future Housing: No Difficulty Paying Gas/Electric Bills: No Difficulty Paying for Meds: No Currently Unemployed: No Education: Master's Degree or Higher Difficulty w/ Childcare or Family Care: No Living arrangements: with family Occupation/Education: occupation Gender identity (if verbalized by the patient): Female Agree to blood products: Yes Exam 2 Narrative: GENERAL: Well-appearing, well-nourished, and in no acute distress. Resting comfortably in exam bed, pleasant and conversational HEAD: Normocephalic, atraumatic. EYES: EOMI. ENT: Nares clear, no rhinorrhea or epistaxis. Mucous membranes moist. NECK: Supple. CHEST: Clear to auscultation. No respiratory distress. HEART: Regular rate and rhythm. No murmur heard. Normal peripheral pulses. EXTREMITIES: LLE: Extensive ecchymosis and edema over the left calf with tenderness, ecchymosis extending distally over the medial malleolus. No bony tenderness. Compartments remain soft. Extremities pink, warm and dry. Sensation is intact. DP pulses 2+ bilaterally. No tenderness or effusion to the knee. All range of motion of hip, knee and ankle. SKIN: Warm, dry, no rash. NEURO: No focal deficits. Alert and oriented x3 Course Vital Signs Vital signs: Vital Signs Temperature 98.1 F 02/14/25 15:41 Pulse Rate 100 02/14/25 15:41 Respiratory Rate 15 02/14/25 15:41 Blood Pressure 153/92 H 02/14/25 15:41 Pulse Oximetry 99 02/14/25 15:41 Temperature 98.1 F 02/14/25 15:41 Pulse Rate 93 02/14/25 19:34 Respiratory Rate 17 02/14/25 19:34 Blood Pressure 140/98 H 02/14/25 19:34 Pulse Oximetry 99 02/14/25 19:34 MDM - Extremity Injury (Lower) MDM Narrative Medical decision making narrative: 29-year-old female presents to the emergency department for left calf swelling and bruising after an injury that occurred 8 days ago. Patient reportedly hyperextended her knee while walking on a curb and felt a pop in her calf and knee. Had negative x-rays of her tib-fib and ankle at urgent care. Follow-up with her PCP and has an outpatient MRI venous duplex ordered. She came to the ED today because the pain, bruising and swelling has worsened. Vitals are stable. Exam is notable for the above. Patient is neurovascularly intact. Compartments are soft. Venous duplex ordered in triage shows no evidence of DVT. There is a likely soft tissue/muscular hematoma the mid left calf with recommendations for follow- up to ensure resolution. Given the injury occurred 8 days ago and patient's swelling and pain continue to worsen, in addition to mechanism of injury, I am concern for vascular injury and possible extravasation. Will obtain lab work and CTA of the leg for further evaluation. Patient politely declines pain control. Lab work without leukocytosis or anemia. Coags normal. CTA of the left lower extremity shows IMPRESSION: Left medial calf hematoma underneath the medial head of the gastrocnemius, presumably associated with a partial gastrocnemius tear. No active extravasation. Presumed chronic small Stieda and Segond fracture fragments at the left knee. No obvious acute fracture identified. If there is knee pain, or clinical suspicion of knee injury is high, recommend MRI of the knee. Patient and friends at bedside updated on results. Patient remains resting comfortably in exam bed. No signs of compartment syndrome on exam. She has no tenderness to the knee, low suspicion for acute avulsion fractures of the knee. She has crutches at home but she states she can use as needed. Advised her to continue Tylenol/ibuprofen, RICE and follow-up with orthopedist. She has an appointment with Orthopedic surgery later this month which I encouraged her to 10. Discussed strict ED return precautions. She is agreeable with the plan verbalized understanding. Discharged in stable condition. Lab Data 02/14/25 17:16 02/14/25 17:16 Labs: Lab Results 02/14/25 02/14/25 Range/Units 17:16 18:01 WBC 9.7 (4.5-10.0) K/mm3 RBC 4.74 (4.2-5.4) M/mm3 Hgb 12.9 (12.0-15.0) g/dL Hct 41.3 (37.0-47.0) % MCV 87.1 (80-100) fl MCH 27.2 (26-34) pg MCHC 31.2 L (32-36) g/dl RDW 13.3 (11.5-14.5) % Plt Count 340 (150-375) k/mm3 MPV 10.1 (7.4-10.4) fl Immature Gran % (Auto) 0.5 (0-0.5) % Neut % (Auto) 63.0 (45.5-73.1) % Lymph % (Auto) 26.3 (18.3-44.2) % [place] % (Auto) 7.3 (2.6-8.5) % Eos % (Auto) 2.4 (0-4.4) % Baso % (Auto) 0.5 (0.2-1.2) % Lymph # (Auto) 2.56 (0.9-3.2) K/mm3 [place] # (Auto) 0.7 H (0.1-0.6) K/mm3 Eos # (Auto) 0.2 (0-0.3) K/mm3 Baso # (Auto) 0.1 (0.0-0.1) K/mm3 Abs Immat Gran (auto) 0.05 H (0.00-0.031) K/mm3 Absolute Neuts (auto) 6.1 (1.3-6.7) K/mm3 Absolute Nucleated RBC 0.000 (0.0-0.012) K/mm3 Nucleated RBC % 0.0 (0.0-0.2) % PT 14.3 (11.1-14.7) Seconds INR 1.1 APTT 30.0 (22.3-36.8) Seconds Sodium 139 (137-145) mmol/L Potassium 4.1 (3.4-5.0) mmol/L Chloride 104 (98-107) mmol/L Carbon Dioxide 25 (22-30) mmol/L Anion Gap 10 (4-12) mmol/L BUN 15 D (7-17) mg/dL Creatinine 0.86 (0.7-1.0) mg/dL Estim Creat Clear Calc Not Reportable Estimated GFR > 60 (59 - ) Glucose 230 H (65-110) mg/dL Calcium 9.1 (8.4-10.2) mg/dL POC Urine HCG, Qual Negative (Negative) Discharge Plan Discharge Clinical Impression: Gastrocnemius muscle tear Qualifiers: Encounter type: initial encounter Laterality: left Qualified Code(s): S86.112A - Strain of other muscle(s) and tendon(s) of posterior muscle group at lower leg level, left leg, initial encounter Patient Disposition: Home Condition: Stable Instructions: Antibiotic Form, Leg Pain (ED) Additional Instructions: Your evaluated in the emergency department for swelling, bruising and pain to her calf. The CT scan shows a tear injury gastrocnemius muscle but no active bleeding which is reassuring. Your vasculature does not have any injuries which is also reassuring. The ultrasound shows no blood clot in your leg. Incidentally you did have to avulsion fractures in your knee which are likely chronic given you have no significant pain in these regions. Please rest, ice, elevate your leg. Take Tylenol and ibuprofen as needed for pain. Follow-up closely with your orthopedic surgeon and primary care provider. Return to the emergency department if he develops significantly worsening pain, white or numbness to your leg, or other concerning symptoms. Patient Language: Greenlandic Prescriptions: New acetaminophen 500 mg capsule 500 mg PO Q6H PRN (Reason: pain) Qty: 14 0RF ibuprofen 800 mg tablet 800 mg PO TID PRN (Reason: pain) Qty: 20 0RF No Action Mounjaro 15 mg/0.5 mL pen injector 15 mg subcut WEEKLY Qty: 6 1RF (DME) blood-glucose meter Kit See Rx Instructions .Route Qty: 1 0RF Rx Instructions: use to test blood sugar twice daily clindamycin phosphate 1 % gel 1 applic topical BID Qty: 60 5RF lorazepam 0.5 mg tablet 0.5 mg PO BID PRN (Reason: anxiety) Qty: 60 0RF glimepiride 1 mg tablet 1 mg PO QAM Qty: 90 1RF Rx Instructions: administer with breakfast metformin 500 mg tablet extended release 24 hr 1,000 mg PO BID Qty: 360 1RF sertraline 50 mg tablet 50 mg PO DAILY Qty: 90 1RF Rx Instructions: Take with 100mg to total 150mg daily sertraline 100 mg tablet 100 mg PO DAILY Qty: 90 1RF Follow-up/Referrals: Elizabeth Ward DO [Primary Care Provider] -
[2025-02-14 17:31] LABS: Basophils Absolute Auto 0.1 K/mm3 (0.0-0.1); Basophils Percent Auto 0.5 % (0.2-1.2); Eosinophils Absolute Auto 0.2 K/mm3 (0-0.3); Eosinophils Percent Auto 2.4 % (0-4.4); Hematocrit 41.3 % (37.0-47.0); Hemoglobin 12.9 g/dL (12.0-15.0); Immature Granulocyte Absolute 0.05 K/mm3 (0.00-0.031); Immature Granulocyte Percent A 0.5 % (0-0.5); Lymphocytes Absolute Auto 2.56 K/mm3 (0.9-3.2); Lymphocytes Percent Auto 26.3 % (18.3-44.2); Mean Corpuscular HGB Conc 31.2 g/dl (32-36); Mean Corpuscular Hemoglobin 27.2 pg (26-34); Mean Corpuscular Volume 87.1 fl (80-100); Mean Platelet Volume 10.1 fl (7.4-10.4); Monocytes Absolute Auto 0.7 K/mm3 (0.1-0.6); Monocytes Percent Auto 7.3 % (2.6-8.5); Neutrophils Absolute Auto 6.1 K/mm3 (1.3-6.7); Platelet Count Result 340 k/mm3 (150-375); Red Blood Count 4.74 M/mm3 (4.2-5.4); Red Cell Distribution Width 13.3 % (11.5-14.5); White Blood Count 9.7 K/mm3 (4.5-10.0)
[2025-02-14 17:41] LABS: INR 1.1; Prothrombin Time 14.3 Seconds (11.1-14.7)
[2025-02-14 17:43] LABS: Anion Gap 10 mmol/L (4-12); Blood Urea Nitrogen 15 mg/dL (7-17); Calcium 9.1 mg/dL (8.4-10.2); Carbon Dioxide 25 mmol/L (22-30); Chloride 104 mmol/L (98-107); Estimated Glomerular Filt Rate > 60; Glucose 230 mg/dL (65-110); Potassium 4.1 mmol/L (3.4-5.0); Sodium 139 mmol/L (137-145)
[2025-02-14 18:03] LABS: BEDSIDEPREGUCG Negative (Negative)
[2025-02-14 18:30] VITALS: BP 145/91; PULSE 95; RESP 18; O2SAT 100
--- NOTE | 2025-02-14 19:23 | PC.NURSE ---
Report received from JUAN PABLO Leon. Assumed care of patient at this time.
[2025-02-14 19:34] VITALS: BP 140/98; PULSE 93; RESP 17; O2SAT 99
== END 2025-02-14 19:48 | disposition home or self-care (01) ==
PROVIDERS: Emergency Provider Physician Assistant; PCP Family Medicine
DX: S86.112A Strain of other muscle(s) and tendon(s) of posterior muscle group at lower leg level, left leg, initial encounter (principal); Z87.440 Personal history of urinary (tract) infections; E11.9 Type 2 diabetes mellitus without complications; I10 Essential (primary) hypertension; F41.9 Anxiety disorder, unspecified; F32.A Depression, unspecified; W18.49XA Other slipping, tripping and stumbling without falling, initial encounter
CPT/HCPCS: 36415; 73706; 80048; 81025; 85025; 85610; 85730; 93971; 99284; Q9967

== ENCOUNTER 2025-02-17 10:49 | Outpatient (CLI) | payer OTHER, SELFPAY ==
--- NOTE | ~2025-02-17 | MR_ITS ---
MRI of the left lower extremity CLINICAL HISTORY: Pain TECHNIQUE: T1-weighted and STIR imaging was performed through the left calf in the axial, coronal, an d sagittal planes. FINDINGS: Bone marrow signals are unremarkable. No fracture or bone marrow edema. No evidence of medi al tibial stress syndrome. No periosteal reaction seen. No evidence for osteomyelitis. Visualized merly nt spaces are essentially intact. No significant joint effusion. There is a crescentic fluid collection interspersed between the medial heads of the gastrocnemius and soleus muscle, with collection measuring approximately 6.5 cm in AP dimension, 1.5 cm in transverse dimension, and extending approximately 10.4 cm and greater caudal extent. There is mild surrounding s oft tissue edema. There is minimal edema in the lateral gastrocnemius muscle belly. Remaining muscula ture intact. IMPRESSION: Crescentic fluid collection between the medial gastrocnemius and soleus muscle bellies, measuring 6.5 x 1.5 x 10.4 cm. This is most likely posttraumatic sequelae of plantaris tendon rupture. Reviewed, dictated and finalized at location . IMPRESSION: Crescentic fluid collection between the medial gastrocnemius and soleus muscle bellies, measuring 6.5 x 1.5 x 10.4 cm. This is most likely posttraumatic seque lae of plantaris tendon rupture.
== END 2025-02-17 10:50 | disposition home or self-care (01) ==
LOC: GOSHIMG 10:49
PROVIDERS: PCP Nurse Practitioner; Visit Provider Nurse Practitioner
DX: M79.606 Pain in leg, unspecified (principal); R93.6 Abnormal findings on diagnostic imaging of limbs
CPT/HCPCS: 73718